=== PATIENT | female | born 1975 | race African-American/Black ===

== ENCOUNTER 2019-01-01 17:52 | Inpatient (IN) ==
[2019-01-01 18:30] LABS: Basophils # 0.1 K/mcL (0.0-0.2); Basophils % 0.6 %; Eosinophils # 1.3 K/mcL (0.0-0.6); Eosinophils % 10.6 %; Hematocrit 45.2 % (35.3-44.9); Hemoglobin 15.2 g/dL (11.5-15.4); Immature Granulocytes % 0.3 % (0-4); Lymphocytes # 1.6 K/mcL (0.6-4.6); Lymphocytes % 13.6 %; Mean Corpuscular HGB Conc 33.6 g/dL (31.6-35.5); Mean Corpuscular Hemoglobin 30.1 pg (28.0-33.3); Mean Corpuscular Volume 89.5 fL (83.0-100.0); Mean Platelet Volume 11.6 fL (9.4-12.4); Monocytes # 1.2 K/mcL (0.0-1.3); Monocytes % 9.9 %; Neutrophils # 7.8 K/mcL (1.6-8.9); Platelet Count 269 K/mcL (140-400); Red Blood Count 5.05 M/mcL (3.82-4.97); Red Cell Distribution Width 14.1 % (11.5-14.5)
[2019-01-01 18:46] LABS: BUN/Creatinine Ratio 7 (6-26); Blood Urea Nitrogen 6 mg/dL (6-20); Calcium 9.1 mg/dL (8.6-10.3); Carbon Dioxide 23 mEq/L (23-29); Chloride 105 mEq/L (98-107); Glucose 110 mg/dL (70-105); Osmolality,Calculated 276 (280-300); Potassium 4.2 mEq/L (3.5-5.1); Sodium 134 mEq/L (136-145); eGFR For Non-African Americans > 60 (> 60)
[2019-01-01] MEDS ORDERED: Ipratropium/Albuterol Neb 3 ML IH ONE (18:55)
[2019-01-01] MEDS ORDERED: methylPREDNISolone 125 MG/2 ML VIAL IVP ONE (18:55)
[2019-01-01] MEDS ORDERED: Azithromycin 500 MG in D5% in Water 250 ML IVPB ONE (18:56)
[2019-01-01] MEDS ORDERED: cefTRIAXone 1,000 MG in Water for inj. (sterile) 20 ML 10 ML IVP ONE (18:56)
--- NOTE | 2019-01-01 19:00 | Emergency Department Note ---
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 CARRILLO ELMORE I have personally performed a face to face evaluation on this patient. I have reviewed and agree with history and physical examination patient management and disposition. Briefly the salient points of the case are as follows: 43-year-old [place] female smoker trying to quit no known history of COPD or asthma months of increasing shortness of breath and about a week of cough sputum fever and chills and fatigue. Well left upper and expiratory wheeze she appears ill but nontoxic. Patient will get DuoNeb's IV fluid chest x-ray screening labs. Antibiotics and admission for sepsis/SIRS criteria./Hypoxia requiring oxygen Pain Scale: 0 - Related Data Previous Rx's Medication Instructions Recorded Albuterol Sulfate [Albuterol 2 puff IH Q4HR #1 hfa.aer.ad 12/04/18 Inhaler] Benzonatate [Tessalon] 100 mg PO TID #15 capsule 12/04/18 Cephalexin [Keflex] 500 mg PO TID #30 capsule 12/04/18 PredniSONE [Deltasone] 20 mg PO DAILY #12 tablet 12/04/18 Allergies Allergy/AdvReac Type Severity Reaction Status Date / Time No Known Allergies Allergy Verified 11/04/18 17:12 Past Medical History - Past Medical History Medical history: Reports: no medical history Psychiatric history: Reports: anxiety, depression - Social History Smoking Status: Current every day smoker Smokeless Tobacco Status: No Alcohol use: Reports: none Drug use: Reports: none Physical Exam - General Limitations: no limitations General appearance: alert, in no apparent distress Course Vital Signs Temperature 101.3 F H 01/01/19 17:59 Pulse Rate 113 01/01/19 17:59 Respiratory Rate 26 01/01/19 17:59 Blood Pressure 123/88 01/01/19 17:59 O2 Sat by Pulse Oximetry 88 01/01/19 17:59 Temperature 101.3 F H 01/01/19 17:59 Pulse Rate 113 01/01/19 17:59 Respiratory Rate 26 01/01/19 17:59 Blood Pressure 123/88 01/01/19 17:59 O2 Sat by Pulse Oximetry 88 01/01/19 17:59 Oxygen Delivery Oxygen Delivery Room Air Medical Decision Making - Lab Data Result diagrams: 01/01/19 18:14 01/01/19 18:14 Lab Results 01/01/19 01/01/19 01/01/19 Range/Units 18:14 18:14 18:14 WBC 12.1 H (4.3-11.1) K/mcL RBC 5.05 H (3.82-4.97) M/mcL Hgb 15.2 (11.5-15.4) g/dL Hct 45.2 H (35.3-44.9) % MCV 89.5 (83.0-100.0) fL MCH 30.1 (28.0-33.3) pg MCHC 33.6 (31.6-35.5) g/dL RDW 14.1 (11.5-14.5) % Plt Count 269 (140-400) K/mcL MPV 11.6 (9.4-12.4) fL Immature Gran % 0.3 (0-4) % Seg Neutrophils % 65.0 % Lymphocytes % 13.6 % Monocytes % 9.9 % Eosinophils % 10.6 % Basophils % 0.6 % Neutrophils # 7.8 (1.6-8.9) K/mcL Lymphocytes # 1.6 (0.6-4.6) K/mcL Monocytes # 1.2 (0.0-1.3) K/mcL Eosinophils # 1.3 H (0.0-0.6) K/mcL Basophils # 0.1 (0.0-0.2) K/mcL Sodium 134 L (136-145) mEq/L Potassium 4.2 (3.5-5.1) mEq/L Chloride 105 (98-107) mEq/L Carbon Dioxide 23 (23-29) mEq/L BUN 6 (6-20) mg/dL Creatinine 0.81 (0.60-1.20) mg/dL Est GFR ( Amer) > 60 (> 60) Est GFR (Non-Af Amer) > 60 (> 60) BUN/Creatinine Ratio 7 (6-26) Glucose 110 H (70-105) mg/dL Calculated Osmolality 276 L (280-300) Lactic Acid 1.0 (0.5-2.2) mmol/L Calcium 9.1 (8.6-10.3) mg/dL
[2019-01-01 19:24] LABS: Alanine Aminotransferase 11 Units/L (7-52); Albumin 3.9 g/dL (3.5-5.7); Albumin/Globulin Ratio 1.1 (1.1-2.2); Alkaline Phosphatase 57 Units/L (34-104); Aspartate Amino Transferase 19 Units/L (13-39); Bilirubin,Direct 0.1 mg/dL (0.0-0.2); Bilirubin,Indirect 0.2 mg/dL (0.0-1.2); Bilirubin,Total 0.3 mg/dL (0.3-1.0); Globulin 3.4 g/dL (2.4-3.5); Lipase 3 Units/L (11-82); Magnesium 1.8 mg/dL (1.6-2.6); Phosphorous 2.5 mg/dL (2.7-4.5); Total Protein 7.3 g/dL (6.4-8.9); Troponin I < 0.03 ng/mL (< 0.04)
--- NOTE | 2019-01-01 19:24 | Emergency Department Note ---
Disposition Clinical Impression: Hypoxia Pneumonia Qualifiers: Pneumonia type: due to unspecified organism Laterality: left Lung location: upper lobe of lung Qualified Code(s): J18.1 - Lobar pneumonia, unspecified alphonse connelly Disposition: Admitted As Inpatient Condition: Good Referrals: NONE,PCP [Primary Care Provider] - Forms: ED Satisfaction Letter Time of Disposition: 20:04 General Adult HPI - General Chief complaint: ED Shortness of Breath/Dyspnea Stated complaint: ROQUE, Cough,Vomiting Time Seen by Provider: 01/01/19 18:39 Source: patient Limitations: no limitations Nursing Notes Reviewed: Yes Vital Signs Reviewed: Yes - History of Present Illness HPI Narrative: Male patient presents emergency complaining of shortness of breath. She states that she is having feeling well for several months however this has significantly worse 3 days ago. She reports a cough and one episode of vomiting yesterday after coughing. She also reports rib pain while she is coughing. She denies any overt chest pain. She does report chilling. She reports that she has a productive cough with yellow sputum. She is a smoker but trying to cut back. No diagnosed history of COPD or asthma. She denies any abdominal pain other than when she is coughing as well. She denies swelling to her extremities. Pain Scale: 0 - Related Data Previous Rx's Medication Instructions Recorded Albuterol Sulfate [Albuterol 2 puff IH Q4HR #1 hfa.aer.ad 12/04/18 Inhaler] Benzonatate [Tessalon] 100 mg PO TID #15 capsule 12/04/18 Cephalexin [Keflex] 500 mg PO TID #30 capsule 12/04/18 PredniSONE [Deltasone] 20 mg PO DAILY #12 tablet 12/04/18 Allergies Allergy/AdvReac Type Severity Reaction Status Date / Time No Known Allergies Allergy Verified 11/04/18 17:12 All systems ED: reviewed and negative except as stated. Review of Systems: As Per HPI Constitutional: Reports: fever (Subjective), chills ENT ED: Reports: congestion Cardiovascular: Reports: chest pain (When coughing). Denies: palpitations, syncope Respiratory: Reports: cough, dyspnea, wheezes, sputum production Gastrointestinal: Reports: abdominal pain (When coughing), vomiting (After a coughing episode.). Denies: nausea, diarrhea, hematemesis, melena, hematochezia Genitourinary: Denies: urgency, dysuria, frequency, hematuria Musculoskeletal: Denies: back pain, neck pain Integumentary: Denies: rash Past Medical History - Past Medical History Attestation: Yes The following information was validated with the patient. Source: patient Medical history: Reports: no medical history Psychiatric history: Reports: anxiety, depression - Social History Smoking Status: Current every day smoker Smokeless Tobacco Status: No Alcohol use: Reports: none Drug use: Reports: none Physical Exam - General Limitations: no limitations General appearance: alert, in no apparent distress - Head Head exam: atraumatic, normocephalic, normal inspection - Eye Eye exam: Present: normal appearance, PERRL, EOMI - ENT ENT exam: normal exam, normal oropharynx, mucous membranes moist - Neck Neck exam: Present: normal inspection, full ROM, trachea midline - Chest Chest inspection: Present: normal inspection, symmetric chest wall rise - Respiratory Respiratory exam: Present: respiratory distress, wheezes (Expiratory throughout), accessory muscle use (Mild intercostal retractions.), other (Rhonchi worse on the left.) - Cardiovascular Cardiovascular exam: Present: regular rate, normal rhythm, normal heart sounds - Abdominal Exam Abdominal exam: Present: soft, Non-Tender. Absent: tenderness, distention, guarding, rebound, rigidity, organomegaly, Bell's sign, Rovsing's sign - Extremities Exam Extremities exam: Present: normal inspection, full ROM, normal capillary refill. Absent: tenderness, pedal edema - Neurological Exam Neurological exam: Present: alert, oriented X3 - Psychiatric Psychiatric exam: Present: normal affect, normal mood - Skin Skin exam: Present: warm, dry, intact, normal color. Absent: rash, cyanosis, diaphoresis Course Course Narrative: Female patient tachycardic and requiring 2 L of oxygen to maintain oxygen saturation in the mid 90s. She does not generally wear oxygen. No endorsed medical history. She is a smoker and is trying to cut back. Does have a left upper lobe pneumonia. We will provide her with fluid challenge at this time secondary to her tachycardia and meeting Sears criteria. We will start her on antibiotics at this time admitted to the hospital for hypoxia as well as pneumonia. Patient is agreeable with this plan. We will also provide her with Tylenol for her fever. - Consultations Consultation #1: Dr Sutton accepted Pt in stable condition Time: 20:04 Vital Signs Temperature 101.3 F H 01/01/19 17:59 Pulse Rate 113 01/01/19 17:59 Respiratory Rate 26 01/01/19 17:59 Blood Pressure 123/88 01/01/19 17:59 O2 Sat by Pulse Oximetry 88 01/01/19 17:59 Temperature 100.4 F H 01/01/19 19:31 Pulse Rate 117 01/01/19 19:31 Respiratory Rate 20 01/01/19 19:31 Blood Pressure 141/98 01/01/19 19:31 O2 Sat by Pulse Oximetry 95 01/01/19 19:36 Oxygen Delivery Oxygen Delivery Nasal Cannula Medical Decision Making - Medical Records Medical records reviewed: Yes I reviewed the patient's medical records. - Lab Data Lab results reviewed: Yes I reviewed the patient's lab results. Result diagrams: 01/01/19 18:14 01/01/19 18:14 Lab Results 01/01/19 01/01/19 01/01/19 Range/Units 18:14 18:14 18:14 WBC 12.1 H (4.3-11.1) K/mcL RBC 5.05 H (3.82-4.97) M/mcL Hgb 15.2 (11.5-15.4) g/dL Hct 45.2 H (35.3-44.9) % MCV 89.5 (83.0-100.0) fL MCH 30.1 (28.0-33.3) pg MCHC 33.6 (31.6-35.5) g/dL RDW 14.1 (11.5-14.5) % Plt Count 269 (140-400) K/mcL MPV 11.6 (9.4-12.4) fL Immature Gran % 0.3 (0-4) % Seg Neutrophils % 65.0 % Lymphocytes % 13.6 % Monocytes % 9.9 % Eosinophils % 10.6 % Basophils % 0.6 % Neutrophils # 7.8 (1.6-8.9) K/mcL Lymphocytes # 1.6 (0.6-4.6) K/mcL Monocytes # 1.2 (0.0-1.3) K/mcL Eosinophils # 1.3 H (0.0-0.6) K/mcL Basophils # 0.1 (0.0-0.2) K/mcL Sodium 134 L (136-145) mEq/L Potassium 4.2 (3.5-5.1) mEq/L Chloride 105 (98-107) mEq/L Carbon Dioxide 23 (23-29) mEq/L BUN 6 (6-20) mg/dL Creatinine 0.81 (0.60-1.20) mg/dL Est GFR ( Amer) > 60 (> 60) Est GFR (Non-Af Amer) > 60 (> 60) BUN/Creatinine Ratio 7 (6-26) Glucose 110 H (70-105) mg/dL Calculated Osmolality 276 L (280-300) Lactic Acid 1.0 (0.5-2.2) mmol/L Calcium 9.1 (8.6-10.3) mg/dL Phosphorus 2.5 L (2.7-4.5) mg/dL Magnesium 1.8 (1.6-2.6) mg/dL Total Bilirubin 0.3 (0.3-1.0) mg/dL Direct Bilirubin 0.1 (0.0-0.2) mg/dL Indirect Bilirubin 0.2 (0.0-1.2) mg/dL AST 19 (13-39) Units/L ALT 11 (7-52) Units/L Alkaline Phosphatase 57 (34-104) Units/L Troponin I < 0.03 (< 0.04) ng/mL Serum Total Protein 7.3 (6.4-8.9) g/dL Albumin 3.9 (3.5-5.7) g/dL Globulin 3.4 (2.4-3.5) g/dL Albumin/Globulin Ratio 1.1 (1.1-2.2) Lipase 3 L (11-82) Units/L - Radiology Data Radiology results reviewed: Yes I reviewed the patient's radiology results. Chest X-Ray 01/01/19 18:04 IMPRESSION: Left upper lobe pneumonia D/ / Avni Tirado MD / Avni Tirado MD Interpreting Provider: Avni Tirado MD - EKG Data EKG #1 EKG attestation: Yes I reviewed and interpreted this EKG. EKG results narrative: Sinus tachycardia at a rate of 121. MS interval is 154. QRS duration is 76. QT is 338. QTC is 410. No signs of acute ischemia. Concern for MAT secondary to the variable P waves as well as variable morphology of her QRS. There is no signs of acute ischemia. No previous EKG to compare to.
[2019-01-01] MEDS: 0.9 % Sodium Chloride 1,000 ML IVC SCH ×3 (19:27→23:07)
[2019-01-01 20:08] LABS: Bilirubin,Urine Negative (Negative); Blood,Urine Moderate (Negative); Clarity,Urine Cloudy (Clear); Color,Urine Yellow (Yellow); Glucose,Urine (UA) Normal (Normal); Ketones,Urine Negative (Negative); Leukocyte Esterase,Urine Negative (Negative); Nitrite,Urine Negative (Negative); PH,Urine 5.5 pH Units (5.0-8.0); Protein,Urine Negative (Neg-Trace); Specific Gravity,Urine 1.012 (1.010-1.025); Urobilinogen,Urine Normal (Normal)
[2019-01-01 20:10] LABS: Bacteria,Urine None Seen per hpf (None-Few); Hyaline Casts,Urine None Seen per lpf (None-Few); Squamous Epithelial Cell,Urine Many per lpf (None-Few); WBC,Urine 0-3 per hpf (0-3)
[2019-01-01 20:28] LABS: RBC,Urine 0-3 per hpf (0-3)
[2019-01-01 20:29] LABS: Yeast,Urine Few per hpf (None Seen)
[2019-01-01] MEDS ORDERED: Ipratropium/Albuterol Neb 3 ML IH STA (22:06)
[2019-01-01] MEDS ORDERED: Albuterol 2.5 MG/3 ML NEBULIZER IH PRN (22:08)
[2019-01-01] MEDS ORDERED: traMADol 50 MG TABLET PO PRN (22:08)
[2019-01-01] MEDS ORDERED: Naloxone 0.4 MG/ML INJ IVP PRN (22:08)
[2019-01-01] MEDS: *HR* Heparin 5,000 UNIT/ML VIAL SQ SCH (23:12)
[2019-01-01 23:43] LABS: Influenza A PCR Negative (Negative); Influenza B PCR Negative (Negative); Resp. Syncytial Virus PCR Negative (Negative)
--- NOTE | 2019-01-02 00:10 | Internal Med History&Physical ---
Date of Encounter: 01/01/19 Time of Encounter: 21:45 Internal Medicine - H&P: HPI Chief complaint: cough, fever, dyspnea Admitted From: Emergency Dept Plans for Post Hospital Care: Home History of present illness: Ms. Mc is a 43 year old female who presents to ER with complaints of cough, wheezing, shortness breath, and fever. She has been dealing with bronchitis and wheezing since September,. However, symptoms worsened significantly over the last 2 to 3 days to the point where she is extremely short of breath. She has been using nebulized breathing treatments with little relief. She therefore came to the ER where she was diagnosed with pneumonia. She had blood cultures drawn and was on antibiotics. She was then admitted to hospitalist service. Upon my assessment of the patient, she has some labored breathing, coughing, wheezing, and is tachycardic. She was febrile in the ER and reports history of subjective fevers at home for last 24 hours. She denies any headache, body aches, myalgias, vomiting, or diarrhea. She denies any chest pain other than mild pain with coughing. She denies any hemoptysis. She denies any ill contacts with influenza. She is a smoker and is trying to cut back on her smoking habits. She has never been diagnosed with COPD or asthma. However, she has been using inhalers and nebulizers off and on for the last few years. She does work in a [place] [facility] and has been exposed to ill clients lately. There have been no reports of influenza at the [place] [facility], however. Past Med Surg Social Fam HX - Past Medical History Attestation: Yes The following information was validated with the patient. Source: patient, other (ER records) Medical history: no medical history Psychiatric history: anxiety, depression - Past Surgical History Surgical History: no surgical history - Social History Smoking Status: Current every day smoker Smokeless Tobacco Status: No Alcohol use: none Drug use: none Occupational status: employed Current living situation: Home, With Family Activity Level: Independent ambulation Recent Out of Country Travel Within the Last 8 Weeks: No - Family History Mother Adopted: [place]: Manju Cousins Family Member Ethnicity: Non- Living Status: Age at : 63 Cause of : Leukemia Hx Family Cardiac Disorders: No Hx Family Respiratory Disorders: No Hx Family Cancer: Yes (Leukemia) Hx Family GI Disorders: No Hx Family Genitourinary Disorders: No Hx Family Endocrine Disorder: Yes Hx Family Musculoskeletal Disorders: No Hx Family Neuromuscular Disorders: No Hx Family Neurologic Disorders: No Hx Family HEENT Disorders: No Hx Family Autoimmune Disorders: No Hx Family Reproductive Disorders: No Hx Family Psychosocial Disorders: No Father Living Status: Still Living Hx Family Respiratory Disorders: No Internal Medicine - H&P: Meds Albuterol Sulfate [Albuterol Inhaler] 2 puff IH Q4HR #1 hfa.aer.ad 12/04/18 [Rx] Benzonatate [Tessalon] 100 mg PO TID #15 capsule 12/04/18 [Rx] Cephalexin [Keflex] 500 mg PO TID #30 capsule 12/04/18 [Rx] PredniSONE [Deltasone] 20 mg PO DAILY #12 tablet 12/04/18 [Rx] Allergy/AdvReac Type Severity Reaction Status Date / Time No Known Allergies Allergy Verified 11/04/18 17:12 - Constitutional Constitutional: chills, fever(s), no night sweats - EENT Eyes: no blurry vision, no change in vision Ears: no ear pain, no tinnitus Nose, mouth and throat: nasal congestion, no sinus pain, no sinus pressure, no sore throat - Cardiovascular Cardiovascular ROS IM: dyspnea, no chest pain, no lightheadedness, no orthopnea, no paroxysmal nocturnal dyspnea, no syncope - Respiratory Respiratory: cough, dyspnea, wheezing, chest congestion, excessive phlegm production, change in phlegm color, pain with cough, no hemoptysis, no pain on inspiration - Gastrointestinal Gastrointestinal: no abdominal pain, no diarrhea, no hematemesis, no hematochezia, no melena, no vomiting - Genitourinary Genitourinary: no dysuria, no flank pain, no hematuria - Musculoskeletal Musculoskeletal ROS IM: no arthralgias, no back pain, no myalgias - Integumentary Integumentary IM: no rash, no jaundice - Neurological Neurological ROS: no disequilibrium, no dizziness, no focal weakness, no frequent falls, no headache(s) - Psychiatric Psychiatric: no anxiety, no depression - Endocrine Endocrine IM: no cold intolerance, no heat intolerance, no polydipsia, no polyphagia, no polyuria - Allergic/Immunologic Allergic/Immunologic: wheezing, no GI upset with certain foods - Constitutional Vitals: Temp Pulse Resp BP Pulse Ox 100 F H 116 16 123/68 93 01/01/19 21:00 01/01/19 21:00 01/01/19 22:43 01/01/19 21:00 01/01/19 22:43 General appearance: Present: cooperative, A&O X 3, pleasant, answers questions appropriately Exam: mild to moderate respiratory distress - Head Head exam: Present: atraumatic, normal inspection - Eye Eye exam: Present: EOMI, PERRL. Absent: scleral icterus Pupils: Present: normal accommodation - ENT ENT exam: Present: mucous membranes dry, normal exam, normal oropharynx - Neck Neck exam general surgery: Present: full ROM, supple. Absent: tenderness, nuchal rigidity, thyromegaly - Respiratory Respiratory exam: Present: accessory muscle use, prolonged expiratory phase, rales (Left lung), respiratory distress (moderate), wheezes, tachypnea. Absent: chest wall tenderness, stridor - Cardiovascular Cardiovascular exam: Present: RRR, +S1, +S2, tachycardia. Absent: diastolic murmur, systolic murmur - GI/Abdominal GI/Abdominal exam: Present: normal bowel sounds, soft. Absent: guarding, hepatomegaly, mass, rebound, splenomegaly, tenderness - Extremities Exam Extremities exam: Present: full ROM, normal capillary refill, warm, radial pulses palpable and symmetrical. Absent: calf tenderness, pedal edema, tenderness - Back Exam Back exam: Present: normal inspection. Absent: CVA tenderness (L), CVA tenderness (R) - Neurological Exam Neurological exam: Present: alert, CN II-XII intact, oriented X3, no focal deficits, strengths equal and symetr throughout - Psychiatric Psychiatric exam: Present: normal affect, normal mood - Skin Skin exam: Present: dry, intact, warm. Absent: rash Internal Med - H&P Results - Labs CBC & Chem 7: 01/01/19 18:14 01/01/19 18:14 Labs: Short CBC 01/01/19 Range/Units 18:14 WBC 12.1 H (4.3-11.1) K/mcL Hgb 15.2 (11.5-15.4) g/dL Hct 45.2 H (35.3-44.9) % Plt Count 269 (140-400) K/mcL Neutrophils # 7.8 (1.6-8.9) K/mcL BMP 01/01/19 18:14 Sodium 134 L Potassium 4.2 Chloride 105 Carbon Dioxide 23 BUN 6 Creatinine 0.81 Glucose 110 H Calcium 9.1 Cardiac Enzymes 01/01/19 Range/Units 18:14 Troponin I < 0.03 (< 0.04) ng/mL Liver Function 01/01/19 Range/Units 18:14 Total Bilirubin 0.3 (0.3-1.0) mg/dL Direct Bilirubin 0.1 (0.0-0.2) mg/dL AST 19 (13-39) Units/L ALT 11 (7-52) Units/L Alkaline Phosphatase 57 (34-104) Units/L Albumin 3.9 (3.5-5.7) g/dL Urine 01/01/19 Range/Units 19:55 Urine Color Yellow (Yellow) Urine Clarity Cloudy A (Clear) Urine pH 5.5 (5.0-8.0) pH Units Ur Specific [place] 1.012 (1.010-1.025) Urine Protein Negative (Neg-Trace) mg/dL Urine Glucose (UA) Normal (Normal) mg/dL - EKG Data -: EKG Interpreted by Myself - EKG Data Prior EKG available for review: no EKG comments: 01/02/19 00:25 sinus tachycardia - Impressions ITS Impressions Chest X-Ray 01/01/19 18:04 IMPRESSION: Left upper lobe pneumonia D/ / Avni Tirado MD / Avni Tirado MD Interpreting Provider: Avni Tirado MD - Diagnostic Studies Chest x-ray Status: image reviewed by me (NINFA infiltrate) - Assessment and plan (1) Acute hypoxemic respiratory failure Current Visit: Yes Status: Acute Assessment and plan: 1. Patient improved with oxygen supplementation. 2. She remains in moderate respiratory distress due to wheezing and pneumonia. 3. Will treat with aggressive aerosols, steroids, and antibiotics. 4. Monitor clinically and provide further support as necessary. (2) Sepsis Current Visit: Yes Status: Acute Assessment and plan: 1. IVF, antibiotics, and respiratory support as above. 2. Trend lactate. 3. Blood cultures drawn in ER. 4. Will order sputum culture and influenza testing. 5. Pneumonia and/or Flu likely etiology for sepsis. Qualifiers: Sepsis type: sepsis due to unspecified organism Qualified Code(s): A41.9 - Sepsis, unspecified organism (3) Pneumonia Current Visit: Yes Status: Acute Assessment and plan: 1. IVF, oxygen, and antibiotics as above. 2. Culture blood, sputum, influenza testing. 3. Oxygen and supportive measures as above. Qualifiers: Pneumonia type: due to unspecified organism Laterality: left Lung location: upper lobe of lung Qualified Code(s): J18.1 - Lobar pneumonia, u nspecified organism (4) DVT prophylaxis Current Visit: Yes Status: Acute Assessment and plan: 1. Heparin SQ.
[2019-01-02] MEDS: 0.9 % Sodium Chloride 1,000 ML IVC SCH ×2 (00:28→14:04)
[2019-01-02] MEDS: Ipratropium/Albuterol Neb 3 ML IH SCH ×7 (00:43→23:55)
[2019-01-02] MEDS ORDERED: methylPREDNISolone 125 MG/2 ML VIAL IVP SCH (04:00)
[2019-01-02 05:01] LABS: Basophils % 0.1 %; Eosinophils % 0.1 %; Hematocrit 38.3 % (35.3-44.9); Immature Granulocytes % 0.2 % (0-4); Lymphocytes % 8.4 %; Mean Corpuscular HGB Conc 33.4 g/dL (31.6-35.5); Mean Corpuscular Hemoglobin 30.1 pg (28.0-33.3); Mean Corpuscular Volume 90.1 fL (83.0-100.0); Mean Platelet Volume 11.4 fL (9.4-12.4); Monocytes # 0.3 K/mcL (0.0-1.3); Monocytes % 2.8 %; Neutrophils # 10.3 K/mcL (1.6-8.9); Platelet Count 268 K/mcL (140-400); Red Blood Count 4.25 M/mcL (3.82-4.97); Red Cell Distribution Width 14.1 % (11.5-14.5); Segmented Neutrophils % 88.4 %
[2019-01-02 05:02] LABS: Hemoglobin 12.8 g/dL (11.5-15.4)
[2019-01-02 05:20] LABS: Alanine Aminotransferase 10 Units/L (7-52); Albumin 3.4 g/dL (3.5-5.7); Albumin/Globulin Ratio 1.2 (1.1-2.2); Alkaline Phosphatase 46 Units/L (34-104); Aspartate Amino Transferase 14 Units/L (13-39); BUN/Creatinine Ratio 11 (6-26); Bilirubin,Total 0.2 mg/dL (0.3-1.0); Blood Urea Nitrogen 8 mg/dL (6-20); Calcium 7.9 mg/dL (8.6-10.3); Carbon Dioxide 21 mEq/L (23-29); Chloride 110 mEq/L (98-107); Globulin 2.9 g/dL (2.4-3.5); Glucose 192 mg/dL (70-105); Magnesium 1.8 mg/dL (1.6-2.6); Osmolality,Calculated 290 (280-300); Potassium 4.2 mEq/L (3.5-5.1); Sodium 138 mEq/L (136-145); Total Protein 6.3 g/dL (6.4-8.9); eGFR For Non-African Americans > 60 (> 60)
[2019-01-02] MEDS: *HR* Heparin 5,000 UNIT/ML VIAL SQ SCH ×3 (06:30→21:46)
[2019-01-02] MEDS: cefTRIAXone 2,000 MG in Water for inj. (sterile) 20 ML 20 ML IVP SCH (08:10)
[2019-01-02] MEDS: Azithromycin 500 MG in D5% in Water 250 ML IVPB SCH (08:10)
--- NOTE | 2019-01-02 10:36 | Internal Med Progress Note ---
<Chintan Louise - Last Filed: 01/02/19 10:33> Date of Encounter: 01/02/19 Time of Encounter: 09:10 - Assessment and plan (1) Acute hypoxemic respiratory failure Current Visit: Yes Status: Acute Assessment and plan: Secondary to PNA and wheezing. Possibly undiagnosed COPD. O2 saturation of 94% on 2 L of oxygen. Patient afebrile. White blood cell count 11.6. - Continue Azithromycin and ceftriaxone Day #2. - Continue scheduled duonebs and albuerol PRN. - Decreased IV Solu-Medrol from 80 mg 3 times a day down to 60 mg 3 times a day. (2) Sepsis Current Visit: Yes Status: Resolved Assessment and plan: Likely secondary to PNA. Lactic acid increased from 1 to 1.9. Influenza test was negative. Blood cultures pending. Sputum culture is pending. Patient currently afebrile. White blood cell count 11.6. Vital signs are stable. - Continue IVF, antibiotics, and respiratory support as above. - Continue to trend lactic acid. Qualifiers: Sepsis type: sepsis due to unspecified organism Qualified Code(s): A41.9 - Sepsis, unspecified organism (3) Pneumonia Current Visit: Yes Status: Acute Assessment and plan: Continue IVF, oxygen and antibiotics. Sputum and blood cultures pending. Continue oxygen support. Chest X-Ray 01/01/19 18:04 IMPRESSION: Left upper lobe pneumonia D/ / Avni Tirado MD / Avni Tirado MD Interpreting Provider: Avni Tirado MD Qualifiers: Pneumonia type: due to unspecified organism Laterality: left Lung location: upper lobe of lung Qualified Code(s): J18.1 - Lobar pneumonia, unspecified organism (4) Hyperglycemia Current Visit: Yes Status: Acute Assessment and plan: Glucose level at 192. Likely elevated due to use of steroids however given her large body habitus, we will screen for diabetes. - Ordered hemoglobin A1c. (5) Morbid obesity with BMI of 40.0-44.9, adult Current Visit: Yes Status: Acute Assessment and plan: Follow-up with lipid panel. If patient has an ASCVD of 7.5%, she will need to be placed on a statin. In addition if her ASCVD as above 10% it would benefit her to also be placed on an aspirin daily. (6) Tobacco abuse Current Visit: Yes Status: Acute Assessment and plan: Patient has an extensive history of smoking. She smokes one pack per day since her teenage years. - Counseled on smoking cessation. (7) DVT prophylaxis Current Visit: Yes Status: Acute Assessment and plan: Heparin 5000 units subcutaneously twice a day. - Subjective Interval history: When seen today patient says that her cough has improved although she still continues to have a productive cough with yellow sputum. She does admit to some minor chest tenderness with deep breaths. Denies any nausea or vomiting. Denies any abdominal pain. Denies any dysuria or hematuria. Denies any fever. She says her shortness of breath has improved somewhat from yesterday. She still does admit to some wheezing. - Constitutional Vitals: Temp Pulse Resp BP Pulse Ox 98.6 F 94 18 120/80 94 01/02/19 07:58 01/02/19 07:58 01/02/19 07:58 01/02/19 07:58 01/02/19 07:58 General appearance: Present: cooperative, A&O X 3, morbidly obese, pleasant, answers questions appropriately - Respiratory Respiratory exam: Present: chest wall tenderness, wheezes (Minor end expiratory). Absent: rales, respiratory distress, rhonchi, stridor, tachypnea - Cardiovascular Cardiovascular exam: Present: RRR, +S1, +S2. Absent: diastolic murmur, gallop, rubs, systolic murmur - GI/Abdominal GI/Abdominal exam: Present: normal bowel sounds, soft, no peritoneal signs. Absent: distended, tenderness - Extremities Exam Extremities exam: Present: warm, radial pulses palpable and symmetrical. Absent: calf tenderness, cyanotic, pedal edema - Skin Skin exam: Present: dry, intact Internal Medicine: Result - Labs CBC & Chem 7: 01/02/19 04:43 01/02/19 04:43 Labs: Short CBC 01/01/19 01/02/19 Range/Units 18:14 04:43 WBC 12.1 H 11.6 H (4.3-11.1) K/mcL Hgb 15.2 12.8 D (11.5-15.4) g/dL Hct 45.2 H 38.3 (35.3-44.9) % Plt Count 269 268 (140-400) K/mcL Neutrophils # 7.8 10.3 H (1.6-8.9) K/mcL BMP 01/01/19 01/02/19 18:14 04:43 Sodium 134 L 138 Potassium 4.2 4.2 Chloride 105 110 H Carbon Dioxide 23 21 L BUN 6 8 Creatinine 0.81 0.72 Glucose 110 H 192 H Calcium 9.1 7.9 L Cardiac Enzymes 01/01/19 Range/Units 18:14 Troponin I < 0.03 (< 0.04) ng/mL Liver Function 01/01/19 01/02/19 Range/Units 18:14 04:43 Total Bilirubin 0.3 0.2 L (0.3-1.0) mg/dL Direct Bilirubin 0.1 (0.0-0.2) mg/dL AST 19 14 (13-39) Units/L ALT 11 10 (7-52) Units/L Alkaline Phosphatase 57 46 (34-104) Units/L Albumin 3.9 3.4 L (3.5-5.7) g/dL Urine 01/01/19 Range/Units 19:55 Urine Color Yellow (Yellow) Urine Clarity Cloudy A (Clear) Urine pH 5.5 (5.0-8.0) pH Units Ur Specific [place] 1.012 (1.010-1.025) Urine Protein Negative (Neg-Trace) mg/dL Urine Glucose (UA) Normal (Normal) mg/dL - Impressions Impressions Chest X-Ray 01/01/19 18:04 IMPRESSION: Left upper lobe pneumonia D/ / Avni Tirado MD / Avni Tirado MD Interpreting Provider: Avni Tirado MD Consult Discharge Plan - Plan Referrals: NONE,PCP [Primary Care Provider] - <Rafael Estevez - Last Filed: 01/02/19 11:43> Date of Encounter: 01/02/19 - Constitutional Vitals: Temp Pulse Resp BP Pulse Ox 98.5 F 83 16 103/64 91 01/02/19 10:44 01/02/19 10:44 01/02/19 11:07 01/02/19 10:44 01/02/19 11:07 Internal Medicine: Result - Labs CBC & Chem 7: 01/02/19 04:43 01/02/19 04:43 Labs: Short CBC 01/01/19 01/02/19 Range/Units 18:14 04:43 WBC 12.1 H 11.6 H (4.3-11.1) K/mcL Hgb 15.2 12.8 D (11.5-15.4) g/dL Hct 45.2 H 38.3 (35.3-44.9) % Plt Count 269 268 (140-400) K/mcL Neutrophils # 7.8 10.3 H (1.6-8.9) K/mcL BMP 01/01/19 01/02/19 18:14 04:43 Sodium 134 L 138 Potassium 4.2 4.2 Chloride 105 110 H Carbon Dioxide 23 21 L BUN 6 8 Creatinine 0.81 0.72 Glucose 110 H 192 H Calcium 9.1 7.9 L Cardiac Enzymes 01/01/19 Range/Units 18:14 Troponin I < 0.03 (< 0.04) ng/mL Liver Function 01/01/19 01/02/19 Range/Units 18:14 04:43 Total Bilirubin 0.3 0.2 L (0.3-1.0) mg/dL Direct Bilirubin 0.1 (0.0-0.2) mg/dL AST 19 14 (13-39) Units/L ALT 11 10 (7-52) Units/L Alkaline Phosphatase 57 46 (34-104) Units/L Albumin 3.9 3.4 L (3.5-5.7) g/dL Urine 01/01/19 Range/Units 19:55 Urine Color Yellow (Yellow) Urine Clarity Cloudy A (Clear) Urine pH 5.5 (5.0-8.0) pH Units Ur Specific [place] 1.012 (1.010-1.025) Urine Protein Negative (Neg-Trace) mg/dL Urine Glucose (UA) Normal (Normal) mg/dL - Impressions Impressions Chest X-Ray 01/01/19 18:04 IMPRESSION: Left upper lobe pneumonia D/ / Avni Tirado MD / Avni Tirado MD Interpreting Provider: Avni Tirado MD - Attending Attestation I examined this patient and my medical decision-making was reviewed with the Resident Physician Dr. Maldonado. I agree with the documented findings, disposition and treatment plan as described except to the extent set forth below. Ms. Mc is a 43 year old female who presents to ER with complaints of cough, wheezing, shortness breath, and fever. She has been dealing with bronchitis and wheezing since September,. However, symptoms worsened significantly over the last 2 to 3 days to the point where she is extremely short of breath. She has been using nebulized breathing treatments with little relief. Her chest x- ray showed left upper lobe pneumonia. Patient was admitted in the hospital and started her on IV steroids and empirical antibiotic. Pt states she is feeling little better today. Still having moderate shortness of breath and dyspnea on exertion. Gen: A, A, O x 3 Chest: Diminished BS b/l, moderate wheezing, no crackles, no rales Heart: S1S2+ RRR, No murmurs a/p 1. Acute hypoxic respiratory failure 2. Community acquired pneumonia - mostly bacterial 3. Acute reactive airway disease exacerbation 4. Chronic tobacco dependence continue empirical antibiotic continue bronchodilators as schedule try to wean her off the oxygen as she tolerates start tapering steroids possible discharge to home tomorrow may need home oxygen eval before she leaves
[2019-01-02 11:12] LABS: Chol/HDL Ratio 5.1 (0-4.9); Cholesterol 163 mg/dL (< 200); HDL Cholesterol 32 mg/dL (40-59); LDL Cholesterol,Calculated 115 mg/dL (0-99); Triglycerides 81 mg/dL (< 150)
[2019-01-02 12:58] LABS: Estimated Average Glucose 123 mg/dl; Hemoglobin A1C 5.9 %
[2019-01-02] MEDS: methylPREDNISolone 125 MG/2 ML VIAL IVP SCH ×2 (13:54→17:13)
[2019-01-02] MEDS: Acetaminophen 325 MG TABLET PO PRN (20:17)
[2019-01-03] MEDS: methylPREDNISolone 125 MG/2 ML VIAL IVP SCH ×3 (01:17→16:48)
[2019-01-03] MEDS: Ipratropium/Albuterol Neb 3 ML IH SCH ×6 (04:47→23:58)
[2019-01-03] MEDS: *HR* Heparin 5,000 UNIT/ML VIAL SQ SCH ×3 (05:40→21:23)
[2019-01-03] MEDS: cefTRIAXone 2,000 MG in Water for inj. (sterile) 20 ML 20 ML IVP SCH (08:59)
[2019-01-03] MEDS: Azithromycin 500 MG in D5% in Water 250 ML IVPB SCH (09:00)
--- NOTE | 2019-01-03 10:41 | Internal Med Progress Note ---
Hospitalist Progress Note - Encounter Date of Encounter: 01/03/19 Time of Encounter: 10:39 - Subjective Interval History: Pt reported improved sob and cough. - Exam Vitals: Temp Pulse Resp BP Pulse Ox 98.0 F 88 17 139/84 91 01/03/19 06:58 01/03/19 06:58 01/03/19 06:58 01/03/19 06:58 01/03/19 06:58 Exam: PHYSICAL EXAMINATION: GENERAL APPEARANCE: The patient is alert, oriented and in no acute distress. HEENT: Head is normocephalic. The sinuses are nontender. Pupils are equal and reactive. The nares are patent. Oropharynx clear without lesions. NECK: Supple without lymphadenopathy. HEART: Regular rate and rhythm. LUNGS: diffuse bilateral wheezes are heard. ABDOMEN: Soft, nontender, nondistended with good bowel sounds heard. Inguinal area is normal. EXTREMITIES: Without cyanosis, clubbing or edema. NEUROLOGICAL: Gross nonfocal. SKIN: Warm and dry without any rash. - Assessment and Plan (1) Pneumonia Current Visit: Yes Status: Acute Assessment and Plan: 01/02 1. IVF, oxygen, and antibiotics as above. 2. Culture blood, sputum, influenza testing. 3. Oxygen and supportive measures as above. 01/03 Continue IV abx, pending blood cx. (2) Acute hypoxemic respiratory failure Current Visit: Yes Status: Acute Assessment and Plan: 01/02 1. Patient improved with oxygen supplementation. 2. She remains in moderate respiratory distress due to wheezing and pneumonia. 3. Will treat with aggressive aerosols, steroids, and antibiotics. 4. Monitor clinically and provide further support as necessary. 01/03 Continue current treatment. (3) Sepsis Current Visit: Yes Status: Resolved (4) DVT prophylaxis Current Visit: Yes Status: Acute Assessment and Plan: 1. Heparin SQ. - Time Spent with Patient Total time spent is greater than 50% in coordination of care (as documented) at patient's floor/unit and/or counseling patient: Greater than 35 minutes Plan of Care Discussed with: patient Internal Medicine: Result - Labs CBC & Chem 7: 01/02/19 04:43 01/02/19 04:43 Labs: BMP 01/02/19 04:43 Sodium 138 Potassium 4.2 Chloride 110 H Carbon Dioxide 21 L BUN 8 Creatinine 0.72 Glucose 192 H Calcium 7.9 L Liver Function 01/02/19 Range/Units 04:43 Total Bilirubin 0.2 L (0.3-1.0) mg/dL AST 14 (13-39) Units/L ALT 10 (7-52) Units/L Alkaline Phosphatase 46 (34-104) Units/L Albumin 3.4 L (3.5-5.7) g/dL Consult Discharge Plan - Plan Referrals: Jan Gustafson MD [Non-Partnered Physician] - (Unable to schedule follow up appointment due to office being closed on the weekend. Please call Saturday to schedule appointment for 7-10 days from date of discharge. ) (1) Pneumonia Qualifiers: Pneumonia type: due to unspecified organism Laterality: left Lung location: upper lobe of lung Qualified Code(s): J18.1 - Lobar pneumonia, unspecified organism (3) Sepsis Qualifiers: Sepsis type: sepsis due to unspecified organism Qualified Code(s): A41.9 - Sepsis, unspecified organism
--- NOTE | 2019-01-03 12:37 | Electrocardiograph Report ---
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
--- NOTE | 2019-01-03 12:42 | Electrocardiograph Report ---
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
[2019-01-04] MEDS: methylPREDNISolone 125 MG/2 ML VIAL IVP SCH ×3 (02:28→15:48)
[2019-01-04] MEDS: Ipratropium/Albuterol Neb 3 ML IH SCH ×5 (03:52→20:13)
[2019-01-04 05:42] LABS: Basophils % 0.1 %; Hematocrit 37.3 % (35.3-44.9); Immature Granulocytes % 2.3 % (0-4); Lymphocytes # 2.1 K/mcL (0.6-4.6); Lymphocytes % 10.1 %; Mean Corpuscular HGB Conc 32.2 g/dL (31.6-35.5); Mean Corpuscular Hemoglobin 29.6 pg (28.0-33.3); Mean Corpuscular Volume 92.1 fL (83.0-100.0); Monocytes # 0.9 K/mcL (0.0-1.3); Monocytes % 4.3 %; Neutrophils # 17.6 K/mcL (1.6-8.9); Platelet Count 293 K/mcL (140-400); Red Blood Count 4.05 M/mcL (3.82-4.97); Red Cell Distribution Width 14.6 % (11.5-14.5); Segmented Neutrophils % 83.2 %
[2019-01-04] MEDS: *HR* Heparin 5,000 UNIT/ML VIAL SQ SCH ×3 (05:55→21:24)
[2019-01-04 05:59] LABS: BUN/Creatinine Ratio 17 (6-26); Blood Urea Nitrogen 13 mg/dL (6-20); Calcium 8.9 mg/dL (8.6-10.3); Carbon Dioxide 27 mEq/L (23-29); Chloride 107 mEq/L (98-107); Glucose 147 mg/dL (70-105); Osmolality,Calculated 289 (280-300); Potassium 4.1 mEq/L (3.5-5.1); Sodium 138 mEq/L (136-145); eGFR For Non-African Americans > 60 (> 60)
[2019-01-04] MEDS: Azithromycin 500 MG in D5% in Water 250 ML IVPB SCH (08:09)
[2019-01-04] MEDS: cefTRIAXone 2,000 MG in Water for inj. (sterile) 20 ML 20 ML IVP SCH (08:09)
[2019-01-04] MEDS: Acetaminophen 325 MG TABLET PO PRN ×2 (09:44→15:45)
--- NOTE | 2019-01-04 11:20 | Pulmonology Consult Note ---
Date of Encounter: 01/04/19 Time of Encounter: 11:20 Assessment and Plan (1) Pneumonia Current Visit: Yes Status: Acute A conclusion this is a 43-year-old woman with past medical history of tobacco abuse and history of recurrent bronchitis who presents with increased shortness of breath 1 week this is likely secondary to community acquired pneumonia with left upper lobe opacity consistent with this diagnosis she has what appears to be an exacerbation of obstructive airway disease and my opinion this is likely a combination of both underlying asthma and COPD or what has been described as asthma COPD overlap syndrome. The fact that she has not had a quick turnaround is not surprising as I suspect she does have advanced airways disease and has a severe pneumonia. She has a persistent leukocytosis which may be a reflection of steroid use however this may mean that optimal treatment has not been obtained for pneumonia for which reason I am recommending further imaging and further investigations to causative organism of pneumonia. Lastly patient has high pretest probability for sleep disorder breathing Recs: -Agree with continuing treatment for community acquired pneumonia with MRSA swab was positive and per persistent leukocytosis would add vancomycin to her regimen until of final speciation of sputum culture -Please send urine antigens for strep pneumo and legionella as well as respiratory infection panel; please also send MRSA surveillance swab -Noncontrasted CT scan of the chest for further evaluation of pneumonia please keep nothing by mouth at midnight may consider bronchoscopy in the morning based upon clinical course and the radiographic findings -Agree with the schedule bronchodilators I have added Symbicort to her regimen ideally she should be discharged with this inhaler albuterol can be given as nee ded -I agree with continuation of IV systemic glucocorticoids likely can be transitioned to by mouth prednisone 40 over the next 24-48 hours -Outpatient pulmonary follow-up she will need to formal polysomnogram to evaluate for likely CARMEN - Possible adverse effects of untreated sleep apnea explained including increased risk of stroke, hypertension, headaches, and pulmonary hypertension. Advised not to drive if sleepy as untreated CARMEN can cause motor vehicle accidents. -Tobacco abuse counseling given -Chemical DVT prophylaxis unless contraindication arises -Please keep nothing by mouth at midnight Dr Smith will review CT scan to make final decision based upon clinical course the patient would Benefit from bronchoscopy or not Thank you for this consultation pulmonary will continue to follow Do not hesitate to call me with any questions or concerns Michael Ramon [phone] Qualifiers: Pneumonia type: due to unspecified organism Laterality: left Lung location: upper lobe of lung Qualified Code(s): J18.1 - Lobar pneumonia, unspecified organism (2) COPD exacerbation Current Visit: Yes Status: Acute (3) Morbid obesity with BMI of 40.0-44.9, adult Current Visit: Yes Status: Acute (4) Tobacco abuse Current Visit: Yes Status: Acute History of Present Illness Consult date: 01/04/19 Requesting physician: Inna Swann Reason for consult: COPD Chief complaint: Difficulty in Breathing History of present illness: Pleasant 43-year-old woman with past medical history of tobacco abuse who pre sents with increased shortness of breath 1 week she also have cough and subjective fevers presented to the ED and found to have diffuse wheezing chest x-ray concerning for pneumonia in the left upper lobe the nasal swab for influenza and RSV were negative patient's been treated for community acquired pneumonia and presumed COPD exacerbation given smoking history. Patient states she has had recurrent episodes of bronchitis over the last 3 months and has been treated on at least 2 separate occasions for bronchitis. 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 She does smoke about a pack a day and has since early adole scence. She does wake up feeling tired after sleep has unrefreshed sleep daytime hypersomnolence including frequent desire to nap and when as we can up with a dry mouth and headaches in the past. Never had a formal sleep evaluation however the patient is morbidly obese. Today she is complaining of a dry mouth denies any nausea vomiting however she states that the dry mouth is secondary to breathing treatments which have been mainstay of therapy along with IV steroids since she has been admitted. She says that breathing feels about the same still very labored and she is dyspneic conversational but still dyspneic. Denies any exotic pets at home no industrial exposures in the past. Past Med Surg Social Fam HX - Past Medical History Medical history: no medical history Psychiatric history: anxiety, depression - Past Surgical History Surgical History: no surgical history - Social History Smoking Status: Current every day smoker Smokeless Tobacco Status: No Alcohol use: none Drug use: none - Family History Mother Adopted: [place]: Manju Cousins Family Member Ethnicity: Non- Living Status: Age at : 63 Cause of : Leukemia Hx Family Cardiac Disorders: No Hx Family Respiratory Disorders: No Hx Family Cancer: Yes (Leukemia) Hx Family GI Disorders: No Hx Family Genitourinary Disorders: No Hx Family Endocrine Disorder: Yes Hx Family Musculoskeletal Disorders: No Hx Family Neuromuscular Disorders: No Hx Family Neurologic Disorders: No Hx Family HEENT Disorders: No Hx Family Autoimmune Disorders: No Hx Family Reproductive Disorders: No Hx Family Psychosocial Disorders: No Father Living Status: Still Living Hx Family Respiratory Disorders: No Medications and Allergies Albuterol Sulfate [Albuterol Inhaler] 2 puff IH Q4HR #1 [email or web address] 12/04/18 [Rx] Allergy/AdvReac Type Severity Reaction Status Date / Time No Known Allergies Allergy Verified 01/02/19 18:51 All Systems: The remainder of the systems were reviewed and are negative Physical Examination Vital Signs: Vital Signs, Last 4 Hours Resp Pulse Ox 01/04/19 08:23 22 95 General appearance: no acute distress Eyes: nonicteric Mallampati (class): 4 Neck: supple Effort: mildly labored Auscultation: bilateral: diminished breath sounds, wheezes (Diffuse expiratory wheezes with prolonged expiratory phase) Cardiovascular: regular rate and rhythm Gastrointestinal: normoactive bowel sounds, soft, non-tender Integumentary: normal Extremities: no cyanosis, no edema, no clubbing Musculoskeletal: no deformities normal mental status, non-focal exam mood appropriate Results - Laboratory Findings CBC and BMP: 01/04/19 04:22 01/04/19 04:22 Abnormal lab findings: Abnormal lab results WBC 21.1 K/mcL (4.3-11.1) H D 01/04/19 04:22 RDW 14.6 % (11.5-14.5) H 01/04/19 04:22 Neutrophils # 17.6 K/mcL (1.6-8.9) H 01/04/19 04:22 Glucose 147 mg/dL (70-105) H 01/04/19 04:22 Hemoglobin A1c 5.9 % (-5.6) H 01/02/19 10:59 Phosphorus 2.0 mg/dL (2.7-4.5) L 01/02/19 04:43 Total Bilirubin 0.2 mg/dL (0.3-1.0) L 01/02/19 04:43 Serum Total Protein 6.3 g/dL (6.4-8.9) L 01/02/19 04:43 Albumin 3.4 g/dL (3.5-5.7) L 01/02/19 04:43 LDL Cholesterol, Calc 115 mg/dL (0-99) H 01/02/19 04:43 HDL Cholesterol 32 mg/dL (40-59) L 01/02/19 04:43 Cholesterol/HDL Ratio 5.1 (0-4.9) H 01/02/19 04:43 Lipase 3 Units/L (11-82) L 01/01/19 18:14 Urine Clarity Cloudy (Clear) A 01/01/19 19:55 Urine Blood Moderate (Negative) H 01/01/19 19:55 Ur Squamous Epith Cells Many per lpf (None-Few) H 01/01/19 19:55 Urine Yeast Few per hpf (None Seen) H 01/01/19 19:55 - Microbiology Findings Microbiology Findings: Microbiology, Last 48 Hours 01/03/19 01:15 Sputum Culture - Preliminary Sputum - Diagnostic Findings Chest x-ray: report reviewed, image reviewed - Clinical Findings Intake & Output: Intake & Output 01/03/19 01/04/19 01/04/19 23:59 07:59 15:59 Intake Total 360 / 360 Balance 360 / 360 Weight 109.6 kg Consult Discharge Plan - Plan Referrals: Jan Gustafson MD [Non-Partnered Physician] - (Unable to schedule follow up appointment due to office being closed on the weekend. Please call Saturday to schedule appointment for 7-10 days from date of discharge. )
[2019-01-04] MEDS: Budesonide/Formoterol 160/4.5 1 PUFF INH IH SCH ×2 (11:44→20:13)
--- NOTE | 2019-01-04 12:17 | Internal Med Progress Note ---
Hospitalist Progress Note - Encounter Date of Encounter: 01/04/19 Time of Encounter: 12:14 - Subjective Interval History: Patient reported coughed up large amount of mucus overnight. She also feel wheezing all the time, unchanged from yesterday. - Exam Vitals: Temp Pulse Resp BP Pulse Ox 97.6 F 71 18 119/75 96 01/04/19 11:18 01/04/19 11:18 01/04/19 11:45 01/04/19 11:18 01/04/19 11:45 Exam: PHYSICAL EXAMINATION: GENERAL APPEARANCE: The patient is alert, oriented and in no acute distress. HEENT: Head is normocephalic. The sinuses are nontender. Pupils are equal and reactive. The nares are patent. Oropharynx clear without lesions. NECK: Supple without lymphadenopathy. HEART: Regular rate and rhythm. LUNGS: diffuse bilateral wheezes are heard. ABDOMEN: Soft, nontender, nondistended with good bowel sounds heard. Inguinal area is normal. EXTREMITIES: Without cyanosis, clubbing or edema. NEUROLOGICAL: Gross nonfocal. SKIN: Warm and dry without any rash. - Assessment and Plan (1) Pneumonia Current Visit: Yes Status: Acute Assessment and Plan: 01/02 1. IVF, oxygen, and antibiotics as above. 2. Culture blood, sputum, influenza testing. 3. Oxygen and supportive measures as above. 01/03 Continue IV abx, pending blood cx. 01/04 MRSA surveillance screen, respiratory infection panel, Legionella and the pneumococcal antigen were ordered. Continue current antibiotics, we will tailor treatment based on the lab results. CT chest ordered by pulmonology, will keep patient nothing by mouth after midnight for possible bronchoscopy in the morning. Pulm consulted, appreciate input and help. (2) Acute hypoxemic respiratory failure Current Visit: Yes Status: Acute Assessment and Plan: 01/02 1. Patient improved with oxygen supplementation. 2. She remains in moderate respiratory distress due to wheezing and pneumonia. 3. Will treat with aggressive aerosols, steroids, and antibiotics. 4. Monitor clinically and provide further support as necessary. 01/03 Continue current treatment. 01/04 Symbicort as started by pulmonology, continue other bronchodilators and IV steroids. (3) Sepsis Current Visit: Yes Status: Resolved (4) DVT prophylaxis Current Visit: Yes Status: Acute Assessment and Plan: 1. Heparin SQ. - Time Spent with Patient Total time spent is greater than 50% in coordination of care (as documented) at patient's floor/unit and/or counseling patient: Greater than 35 minutes Plan of Care Discussed with: patient Internal Medicine: Result - Labs CBC & Chem 7: 01/04/19 04:22 01/04/19 04:22 Labs: Short CBC 01/04/19 Range/Units 04:22 WBC 21.1 H D (4.3-11.1) K/mcL Hgb 12.0 (11.5-15.4) g/dL Hct 37.3 (35.3-44.9) % Plt Count 293 (140-400) K/mcL Neutrophils # 17.6 H (1.6-8.9) K/mcL BMP 01/04/19 04:22 Sodium 138 Potassium 4.1 Chloride 107 Carbon Dioxide 27 BUN 13 Creatinine 0.78 Glucose 147 H Calcium 8.9 Consult Discharge Plan - Plan Referrals: Jan Gustafson MD [Non-Partnered Physician] - (Unable to schedule follow up appointment due to office being closed on the weekend. Please call Saturday to schedule appointment for 7-10 days from date of discharge. ) (1) Pneumonia Qualifiers: Pneumonia type: due to unspecified organism Laterality: left Lung location: upper lobe of lung Qualified Code(s): J18.1 - Lobar pneumonia, unspecified organism (3) Sepsis Qualifiers: Sepsis type: sepsis due to unspecified organism Qualified Code(s): A41.9 - Sepsis, unspecified organism
[2019-01-04 13:14] LABS: Adenovirus Not Detected (Not Detect); Bordetella Pertussis Not Detected (Not Detect); Coronavirus 229E Not Detected (Not Detect); Coronavirus HKU1 Not Detected (Not Detect); Coronavirus NL63 Not Detected (Not Detect); Coronavirus OC43 DETECTED (Not Detect); Human Metapneumovirus Not Detected (Not Detect); Human Rhinovirus/Enterovirus Not Detected (Not Detect); Influenza A Subtype 2009 H1 Not Detected (Not Detect); Influenza A Untypeable Not Detected (Not Detect); Influenza B Not Detected (Not Detect); Parainfluenza Virus 1 Not Detected (Not Detect); Parainfluenza Virus 2 Not Detected (Not Detect); Parainfluenza Virus 3 Not Detected (Not Detect); Parainfluenza Virus 4 Not Detected (Not Detect); Respiratory Syncytial Virus Not Detected (Not Detect)
[2019-01-04 13:15] LABS: Chlamydophila pneumoniae Not Detected (Not Detect); Mycoplasma pneumoniae Not Detected (Not Detect)
[2019-01-04] MEDS: GuaiFENesin/Pseudophedrine TABLET PO SCH ×2 (15:12→21:24)
[2019-01-05] MEDS: Ipratropium/Albuterol Neb 3 ML IH SCH ×7 (00:01→23:47)
[2019-01-05] MEDS: methylPREDNISolone 125 MG/2 ML VIAL IVP SCH (00:48)
[2019-01-05 03:40] LABS: Hematocrit 38.6 % (35.3-44.9); Hemoglobin 12.7 g/dL (11.5-15.4); Mean Corpuscular Volume 89.8 fL (83.0-100.0)
[2019-01-05 03:41] LABS: Basophils % 0.2 %; Eosinophils % 0.1 %; Immature Granulocytes % 2.6 % (0-4); Lymphocytes # 2.3 K/mcL (0.6-4.6); Mean Corpuscular HGB Conc 32.9 g/dL (31.6-35.5); Mean Corpuscular Hemoglobin 29.5 pg (28.0-33.3); Mean Platelet Volume 11.2 fL (9.4-12.4); Monocytes # 0.9 K/mcL (0.0-1.3); Neutrophils # 14.1 K/mcL (1.6-8.9); Platelet Count 300 K/mcL (140-400); Red Cell Distribution Width 14.4 % (11.5-14.5); Segmented Neutrophils % 79.1 %
[2019-01-05 04:04] LABS: BUN/Creatinine Ratio 16 (6-26); Blood Urea Nitrogen 11 mg/dL (6-20); Calcium 8.4 mg/dL (8.6-10.3); Carbon Dioxide 28 mEq/L (23-29); Chloride 105 mEq/L (98-107); Glucose 146 mg/dL (70-105); Osmolality,Calculated 292 (280-300); Potassium 4.1 mEq/L (3.5-5.1); Sodium 140 mEq/L (136-145); eGFR For Non-African Americans > 60 (> 60)
[2019-01-05] MEDS: *HR* Heparin 5,000 UNIT/ML VIAL SQ SCH ×3 (05:19→20:38)
[2019-01-05] MEDS: Budesonide/Formoterol 160/4.5 1 PUFF INH IH SCH ×2 (07:58→19:42)
[2019-01-05] MEDS: Azithromycin 500 MG in D5% in Water 250 ML IVPB SCH (08:37)
[2019-01-05] MEDS: GuaiFENesin/Pseudophedrine TABLET PO SCH ×2 (08:37→20:38)
[2019-01-05] MEDS: cefTRIAXone 2,000 MG in Water for inj. (sterile) 20 ML 20 ML IVP SCH (08:38)
[2019-01-05] MEDS ORDERED: predniSONE 20 MG TABLET PO SCH (09:00)
[2019-01-05] MEDS ORDERED: *HR* FentaNYL (PF) 100 MCG/2 ML VIAL ONE (09:09)
[2019-01-05] MEDS ORDERED: *HR* Midazolam HCl 5 MG/5 ML VIAL IVP ONE (09:10)
[2019-01-05] MEDS ORDERED: Lidocaine Viscous Oral Soln 15 ML SOLUTION ONE (09:12)
--- NOTE | 2019-01-05 09:20 | Pulmonology Progress Note ---
<Marisabel Forrester - Last Filed: 01/05/19 13:02> Date of Encounter: 01/05/19 Time of Encounter: 10:00 Assessment and Plan (1) COPD (chronic obstructive pulmonary disease) Current Visit: Yes Status: Suspected Suspected COPD but has coronavirus positive and shortness of breath could be attributed to that. She has no previous diagnosis of COPD. CT shows diffusely multifocal bilateral ground glass opacities. She also was noted to have mediastinal and bilateral hilar adenopathy on the CT chest. -Completed bronchoscopy this morning -Pending cytology results -Continue to taper prednisone, decreased to 20 mg today -Follow outpatient with pulmonolgoy for PFTs and CARMEN polysomnogram Qualifiers: COPD type: unspecified COPD Qualified Code(s): J44.9 - Chronic obstructive pulmonary disease, unspecified (2) Tobacco abuse Current Visit: Yes Status: Acute 20 pack year history and current smoker. Received tobacco cessation counseling. (3) Morbid obesity with BMI of 40.0-44.9, adult Current Visit: Yes Status: Chronic BMI 44.2, could have obesity hypoventilation syndrome. Would benefit from outpatient obstructive sleep apnea evaluation with pulmonology. Subjective Interval history: Ms. Mc was seen at bedside this morning. She complained of ongoing shortness of breath for the past 3 months. She also complained of coughing. Her symptoms have not improve. Prior to three months ago she had no respiratory related complaints. She denies fever, chills, nausea, emesis, or chest pain. Objective PUL Vital signs: Last Vital Signs Temp 98.5 F 01/05/19 06:45 Pulse 78 01/05/19 06:45 Resp 18 01/05/19 08:00 BP 134/78 01/05/19 06:45 Pulse Ox 93 01/05/19 08:00 General appearance: no acute distress Eyes: nonicteric ENT: oropharynx moist Neck: supple Auscultation: bilateral: diminished breath sounds, wheezes Cardiovascular: regular rate and rhythm Gastrointestinal: normoactive bowel sounds, soft, non-tender, non-distended Integumentary: normal Extremities: no cyanosis, no edema normal mental status mood appropriate, affect normal Results - Laboratory Findings CBC and BMP: 01/05/19 03:14 01/05/19 03:14 Abnormal lab findings: Abnormal lab results WBC 17.8 K/mcL (4.3-11.1) H 01/05/19 03:14 Neutrophils # 14.1 K/mcL (1.6-8.9) H 01/05/19 03:14 Glucose 146 mg/dL (70-105) H 01/05/19 03:14 Hemoglobin A1c 5.9 % (-5.6) H 01/02/19 10:59 Calcium 8.4 mg/dL (8.6-10.3) L 01/05/19 03:14 Phosphorus 2.0 mg/dL (2.7-4.5) L 01/02/19 04:43 Total Bilirubin 0.2 mg/dL (0.3-1.0) L 01/02/19 04:43 Serum Total Protein 6.3 g/dL (6.4-8.9) L 01/02/19 04:43 Albumin 3.4 g/dL (3.5-5.7) L 01/02/19 04:43 LDL Cholesterol, Calc 115 mg/dL (0-99) H 01/02/19 04:43 HDL Cholesterol 32 mg/dL (40-59) L 01/02/19 04:43 Cholesterol/HDL Ratio 5.1 (0-4.9) H 01/02/19 04:43 Lipase 3 Units/L (11-82) L 01/01/19 18:14 Urine Clarity Cloudy (Clear) A 01/01/19 19:55 Urine Blood Moderate (Negative) H 01/01/19 19:55 Ur Squamous Epith Cells Many per lpf (None-Few) H 01/01/19 19:55 Urine Yeast Few per hpf (None Seen) H 01/01/19 19:55 Coronavirus OC43 (PCR) DETECTED (Not Detect) A 01/04/19 12:10 - Microbiology Findings Microbiology Findings: Microbiology, Last 48 Hours 01/03/19 01:15 Sputum Culture - Preliminary Sputum - Clinical Findings Intake & Output: Intake & Output 01/04/19 01/05/19 01/05/19 23:59 07:59 15:59 Intake Total 270 / 270 Balance 270 / 270 Consult Discharge Plan - Plan Referrals: Jan Gustafson MD [Non-Partnered Physician] - 01/13/19 9:15 am () <Shae Smith - Last Filed: 01/05/19 15:01> Date of Encounter: 01/05/19 Objective PUL Vital signs: Last Vital Signs Temp 98.5 F 01/05/19 06:45 Pulse 78 01/05/19 06:45 Resp 18 01/05/19 08:00 BP 134/78 01/05/19 06:45 Pulse Ox 93 01/05/19 08:00 Results - Laboratory Findings CBC and BMP: 01/05/19 03:14 01/05/19 03:14 Abnormal lab findings: Abnormal lab results WBC 17.8 K/mcL (4.3-11.1) H 01/05/19 03:14 Neutrophils # 14.1 K/mcL (1.6-8.9) H 01/05/19 03:14 Glucose 146 mg/dL (70-105) H 01/05/19 03:14 Hemoglobin A1c 5.9 % (-5.6) H 01/02/19 10:59 Calcium 8.4 mg/dL (8.6-10.3) L 01/05/19 03:14 Phosphorus 2.0 mg/dL (2.7-4.5) L 01/02/19 04:43 Total Bilirubin 0.2 mg/dL (0.3-1.0) L 01/02/19 04:43 Serum Total Protein 6.3 g/dL (6.4-8.9) L 01/02/19 04:43 Albumin 3.4 g/dL (3.5-5.7) L 01/02/19 04:43 LDL Cholesterol, Calc 115 mg/dL (0-99) H 01/02/19 04:43 HDL Cholesterol 32 mg/dL (40-59) L 01/02/19 04:43 Cholesterol/HDL Ratio 5.1 (0-4.9) H 01/02/19 04:43 Lipase 3 Units/L (11-82) L 01/01/19 18:14 Urine Clarity Cloudy (Clear) A 01/01/19 19:55 Urine Blood Moderate (Negative) H 01/01/19 19:55 Ur Squamous Epith Cells Many per lpf (None-Few) H 01/01/19 19:55 Urine Yeast Few per hpf (None Seen) H 01/01/19 19:55 Coronavirus OC43 (PCR) DETECTED (Not Detect) A 01/04/19 12:10 - Microbiology Findings Microbiology Findings: Microbiology, Last 48 Hours 01/03/19 01:15 Sputum Culture - Preliminary Sputum - Clinical Findings Intake & Output: Intake & Output 01/04/19 01/05/19 01/05/19 23:59 07:59 15:59 Intake Total 270 / 270 Balance 270 / 270 - Attending Attestation I examined this patient and my medical decision-making was reviewed with the Resident Physician. I agree with the documented findings, disposition and treatment plan as described except to the extent set forth below. Patient seen and examined. Labs, radiology, chart personally reviewed. 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 Reviewed CT chest and there is evidence of groundglass infiltrates mainly in both upper lobes suggesting pneumonia which could be viral in nature and also what seems to be reactive adenopathy. Since patient has risk factors, discussed with patient regarding bronchoscopy and she agreed to have it done.A bronchoscopy is recommended. The procedure , risks, benefits, complications, and expected outcomes have been reviewed. Benefits of diagnosis, as well as risks to include bleeding, infection, pneumothorax which may require surgical intervention, and in a small population. The patient is aware that sometimes test is nondiagnostic. Discussed with patient and agrees to proceed. I suspect patient has underlying obstructive sleep apnea and outpatient workup to be done when patient is discharged from the hospital.
--- NOTE | 2019-01-05 10:20 | Anesthesia Evaluation PreOp ---
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 ADVOCATE History: Denies Any Significant HX Other Medical History: Other (obsity BMI=44.2, anxiety/depression) Anesthesia History: Past Anesthesia (no prior GA) Test: Negative (01/05/2019) Alcohol Use: none Drug use: none Medications and Allergies Albuterol Sulfate [Albuterol Inhaler] 2 puff IH Q4HR #1 hfa.aer.ad 12/04/18 [Rx] Allergy/AdvReac Type Severity Reaction Status Date / Time No Known Allergies Allergy Verified 01/02/19 18:51 - Meds/Allergy Pre-op Review Medications Reviewed: Yes Allergies Reviewed: Yes Beta Blockers on Current Med List: No Anesthesia Results - Labs 01/05/19 03:14 01/05/19 03:14 Laboratory Tests 01/05/19 09:45 Serum , Qual Negative - Imaging EKG: report reviewed (01/02/2019 SINUS RHYTHM WITH MARKED SINUS ARRHYTHMIA NONSPECIFIC T-WAVE ABNORMALITY) Chest x-ray: report reviewed (01/01/2019 IMPRESSION: Left upper lobe pneumonia) Anesthesia Exam Vital Signs/O2 Sat, Most Current Temp Pulse Resp BP Pulse Ox 98.5 F 78 18 134/78 93 01/05/19 06:45 01/05/19 06:45 01/05/19 08:00 01/05/19 06:45 01/05/19 08:00 Height: 5'2''/1.57m Weight: 241 lbs/109.6 kg NPO (# of Hours): 8 Pain Scale: 0 Pain Scale Used: Numeric (1 - 10) - HEENT Pupil (Motor): EOMI Mallampati: II Teeth: Normal Oral Opening: Greater than 3 - DEVELOPER ADVOCATE LOC: Oriented DEVELOPER ADVOCATE Motor: Normal RUE, Normal LUE, Normal RLE, Normal LLE, Normal Face DEVELOPER ADVOCATE Sensory: Normal: RUE, LUE, RLE, LLE, Face - Cardiac Rhythm: Regular Murmur: None - Pulmonary Breath Sounds: bilateral Rhonchi (wheezes) Respiratory Effort: Symmetrical Anesthesia Assess/Plan ASA Score: 3 Level of consciousness: Cooperative, Oriented, Tranquil Monitoring Plan: Standard Monitors Recovery Plan: PACU
[2019-01-05] MEDS ORDERED: Lidocaine -MPF 2% 2 ML VIAL ONE (10:31)
[2019-01-05] MEDS ORDERED: Dexamethasone 4 MG/ML VIAL ONE (10:31)
[2019-01-05] MEDS ORDERED: Ondansetron 4 MG/2 ML VIAL ONE (10:31)
[2019-01-05] MEDS ORDERED: *HR* Succinylcholine 200 MG/10 ML VIAL IVP ONE (10:31)
[2019-01-05] MEDS ORDERED: Lidocaine -MPF 4% 5 ML AMPUL ONE (10:31)
[2019-01-05] MEDS ORDERED: *HR* Propofol 200 MG/20 ML VIAL IVP ONE (10:32)
[2019-01-05] MEDS ORDERED: Albuterol 2.5 MG/3 ML NEBULIZER ONE (10:58)
[2019-01-05] MEDS ORDERED: 0.9 % Sodium Chloride 500 ML IVC SCH (11:00)
--- NOTE | 2019-01-05 11:38 | Internal Med Progress Note ---
Hospitalist Progress Note - Encounter Date of Encounter: 01/05/19 Time of Encounter: 11:35 - Subjective Interval History: Patient has been off oxygen overnight, she still reported congestion and cough drop large amount of mucus. Shortness of breath has improved. She has no fever, chills, or night sweats. - Exam Vitals: Temp Pulse Resp BP Pulse Ox 98.0 F 103 18 137/86 99 01/05/19 11:30 01/05/19 11:30 01/05/19 11:30 01/05/19 11:30 01/05/19 11:30 Exam: PHYSICAL EXAMINATION: GENERAL APPEARANCE: The patient is alert, oriented and in no acute distress. HEENT: Head is normocephalic. The sinuses are nontender. Pupils are equal and reactive. The nares are patent. Oropharynx clear without lesions. NECK: Supple without lymphadenopathy. HEART: Regular rate and rhythm. LUNGS: diffuse bilateral wheezes are heard. ABDOMEN: Soft, nontender, nondistended with good bowel sounds heard. Inguinal area is normal. EXTREMITIES: Without cyanosis, clubbing or edema. NEUROLOGICAL: Gross nonfocal. SKIN: Warm and dry without any rash. - Assessment and Plan (1) Pneumonia Current Visit: Yes Status: Acute Assessment and Plan: 01/02 1. IVF, oxygen, and antibiotics as above. 2. Culture blood, sputum, influenza testing. 3. Oxygen and supportive measures as above. 01/03 Continue IV abx, pending blood cx. 01/04 MRSA surveillance screen, respiratory infection panel, Legionella and the pneumococcal antigen were ordered. Continue current antibiotics, we will tailor treatment based on the lab results. CT chest ordered by pulmonology, will keep patient nothing by mouth after midnight for possible bronchoscopy in the morning. Pulm consulted, appreciate input and help. 01/05 CT chest showed bilateral diffused GGO, patient had bronchoscopy with BAL today, pending cultures. Continue IV antibiotics for pneumonia. Continue bronchodilators. Anticipated discharge in the morning. (2) Acute hypoxemic respiratory failure Current Visit: Yes Status: Acute Assessment and Plan: 01/02 1. Patient improved with oxygen supplementation. 2. She remains in moderate respiratory distress due to wheezing and pneumonia. 3. Will treat with aggressive aerosols, steroids, and antibiotics. 4. Monitor clinically and provide further support as necessary. 01/03 Continue current treatment. 01/04 Symbicort as started by pulmonology, continue other bronchodilators and IV steroids. 01/05 Status post bronchoscopy, mucus plug were seen in BAL. Continue IV antibiotics. Continue treatment for COPD. Discussed about smoking cessation. (3) Sepsis Current Visit: Yes Status: Resolved (4) DVT prophylaxis Current Visit: Yes Status: Acute Assessment and Plan: 1. Heparin SQ. - Time Spent with Patient Total time spent is greater than 50% in coordination of care (as documented) at patient's floor/unit and/or counseling patient: Greater than 35 minutes Plan of Care Discussed with: patient Internal Medicine: Result - Labs CBC & Chem 7: 01/05/19 03:14 01/05/19 03:14 Labs: Short CBC 01/05/19 Range/Units 03:14 WBC 17.8 H (4.3-11.1) K/mcL Hgb 12.7 (11.5-15.4) g/dL Hct 38.6 (35.3-44.9) % Plt Count 300 (140-400) K/mcL Neutrophils # 14.1 H (1.6-8.9) K/mcL BMP 01/05/19 03:14 Sodium 140 Potassium 4.1 Chloride 105 Carbon Dioxide 28 BUN 11 Creatinine 0.67 Glucose 146 H Calcium 8.4 L - Impressions Impressions Chest CT 01/04/19 11:23 IMPRESSION: Diffusely distributed multifocal bilateral areas of ground-glass opacity, likely infectious or inflammatory. Edema or hemorrhage are also possible. Mediastinal and bilateral hilar adenopathy, likely reactive. D/ / Cris Cespedes Cha, MD / Cris Cespedes Cha, MD Interpreting Provider: Cris Cespedes Cha, MD Consult Discharge Plan - Plan Referrals: Jan Gustafson MD [Non-Partnered Physician] - 01/13/19 9:15 am () (1) Pneumonia Qualifiers: Pneumonia type: due to unspecified organism Laterality: left Lung location: upper lobe of lung Qualified Code(s): J18.1 - Lobar pneumonia, unspecified organism (3) Sepsis Qualifiers: Sepsis type: sepsis due to unspecified organism Qualified Code(s): A41.9 - Sepsis, unspecified organism
--- NOTE | 2019-01-05 11:58 | Anesthesia Evaluation Post Op ---
Date of Encounter: 01/05/19 Time of Encounter: 11:57 - Vital Signs Vital Signs: Vital Signs/O2 Sat/Glucose, Most Recent Temp Pulse Resp BP Pulse Ox 98.0 F 90 20 132/82 98 01/05/19 11:50 01/05/19 11:50 01/05/19 11:50 01/05/19 11:50 01/05/19 11:50 - Lungs Lungs: Wheezes (baseline) - Airway Airway: Non-obstructed - Cardiovascular Regular Rate - Mental Status Mental Status: Alert & Oriented, Answers Appropriately - Pain Pain Scale: 0 - Nausea Vomiting Nausea Vomiting: Not Present - Hydration Hydration: Tolerates oral liquids - Discharge PostOp Status: Transfer Patient to floor
[2019-01-05 14:43] LABS: Source of Body Fluid LUL BAL; Source of Body Fluid RUL BAL
[2019-01-05 22:12] LABS: Appearance of Body Fluid Cloudy (Clear); Volume of Body Fluid 15 mL
[2019-01-05 22:38] LABS: Appearance of Body Fluid Cloudy (Clear); Volume of Body Fluid 16 mL
[2019-01-06] MEDS: Ipratropium/Albuterol Neb 3 ML IH SCH ×3 (04:10→11:07)
[2019-01-06] MEDS: *HR* Heparin 5,000 UNIT/ML VIAL SQ SCH (05:07)
[2019-01-06 05:52] LABS: Basophils # 0.1 K/mcL (0.0-0.2); Basophils % 0.3 %; Eosinophils % 0.1 %; Hematocrit 38.1 % (35.3-44.9); Hemoglobin 12.6 g/dL (11.5-15.4); Immature Granulocytes % 2.6 % (0-4); Lymphocytes # 2.8 K/mcL (0.6-4.6); Lymphocytes % 18.3 %; Mean Corpuscular HGB Conc 33.1 g/dL (31.6-35.5); Mean Corpuscular Hemoglobin 29.9 pg (28.0-33.3); Mean Corpuscular Volume 90.3 fL (83.0-100.0); Mean Platelet Volume 11.7 fL (9.4-12.4); Monocytes # 1.2 K/mcL (0.0-1.3); Monocytes % 7.8 %; Neutrophils # 10.7 K/mcL (1.6-8.9); Platelet Count 289 K/mcL (140-400); Red Blood Count 4.22 M/mcL (3.82-4.97); Red Cell Distribution Width 14.1 % (11.5-14.5); Segmented Neutrophils % 70.9 %
[2019-01-06 06:07] LABS: BUN/Creatinine Ratio 16 (6-26); Blood Urea Nitrogen 12 mg/dL (6-20); Calcium 8.5 mg/dL (8.6-10.3); Carbon Dioxide 29 mEq/L (23-29); Chloride 103 mEq/L (98-107); Glucose 123 mg/dL (70-105); Osmolality,Calculated 293 (280-300); Sodium 141 mEq/L (136-145); eGFR For Non-African Americans > 60 (> 60)
[2019-01-06 07:07] VITALS: BP 129/80
[2019-01-06] MEDS: Budesonide/Formoterol 160/4.5 1 PUFF INH IH SCH (07:17)
--- NOTE | 2019-01-06 08:50 | Pulmonology Progress Note ---
<Marisabel Forrester - Last Filed: 01/06/19 13:33> Date of Encounter: 01/06/19 Time of Encounter: 09:20 Assessment and Plan (1) COPD (chronic obstructive pulmonary disease) Status: Suspected Suspected COPD but has coronavirus positive and shortness of breath could be attributed to that. She has no previous diagnosis of COPD. CT shows diffusely multifocal bilateral ground glass opacities. She also was noted to have mediastinal and bilateral hilar adenopathy on the CT chest. -Completed bronchoscopy yesterday -Pending cytology results -Continue to taper prednisone -Follow outpatient with pulmonology for PFTs and CARMEN polysomnogram Qualifiers: COPD type: unspecified COPD Qualified Code(s): J44.9 - Chronic obstructive pulmonary disease, unspecified (2) Tobacco abuse Status: Acute 20 pack year history and current smoker. Received tobacco cessation counseling. (3) Morbid obesity with BMI of 40.0-44.9, adult Status: Chronic BMI 44.2, could have obesity hypoventilation syndrome. Would benefit from outpatient obstructive sleep apnea evaluation with pulmonology. Subjective Interval history: Ms. Mc was seen at bedside this morning. She noted this morning her symptoms have improved and has remained without supplemental oxygen the past 24 hours. She denies fever, chills, nausea, emesis, or chest pain. Objective PUL Vital signs: Last Vital Signs Temp 98.2 F 01/06/19 07:06 Pulse 88 01/06/19 07:06 Resp 16 01/06/19 07:17 BP 129/80 01/06/19 07:06 Pulse Ox 93 01/06/19 07:17 General appearance: no acute distress Eyes: nonicteric ENT: oropharynx moist Neck: supple Auscultation: bilateral: clear Cardiovascular: regular rate and rhythm Gastrointestinal: normoactive bowel sounds, soft, non-tender, non-distended Integumentary: normal Extremities: no cyanosis, no edema Musculoskeletal: no deformities pupils equal and round mood appropriate, affect normal Results - Laboratory Findings CBC and BMP: 01/06/19 04:54 01/06/19 04:54 Abnormal lab findings: Abnormal lab results WBC 15.1 K/mcL (4.3-11.1) H 01/06/19 04:54 Neutrophils # 10.7 K/mcL (1.6-8.9) H 01/06/19 04:54 Glucose 123 mg/dL (70-105) H 01/06/19 04:54 Hemoglobin A1c 5.9 % (-5.6) H 01/02/19 10:59 Calcium 8.5 mg/dL (8.6-10.3) L 01/06/19 04:54 Phosphorus 2.0 mg/dL (2.7-4.5) L 01/02/19 04:43 Total Bilirubin 0.2 mg/dL (0.3-1.0) L 01/02/19 04:43 Serum Total Protein 6.3 g/dL (6.4-8.9) L 01/02/19 04:43 Albumin 3.4 g/dL (3.5-5.7) L 01/02/19 04:43 LDL Cholesterol, Calc 115 mg/dL (0-99) H 01/02/19 04:43 HDL Cholesterol 32 mg/dL (40-59) L 01/02/19 04:43 Cholesterol/HDL Ratio 5.1 (0-4.9) H 01/02/19 04:43 Lipase 3 Units/L (11-82) L 01/01/19 18:14 Urine Clarity Cloudy (Clear) A 01/01/19 19:55 Urine Blood Moderate (Negative) H 01/01/19 19:55 Ur Squamous Epith Cells Many per lpf (None-Few) H 01/01/19 19:55 Urine Yeast Few per hpf (None Seen) H 01/01/19 19:55 Fluid Appearance Cloudy (Clear) A 01/05/19 11:12 Coronavirus OC43 (PCR) DETECTED (Not Detect) A 01/04/19 12:10 - Microbiology Findings Microbiology Findings: Microbiology, Last 48 Hours 01/03/19 01:15 Sputum Culture - Final Sputum 01/05/19 11:12 Gram Stain - Final Right Upper Lobe Lung Respiratory Culture - Preliminary Culture is incubating. 01/05/19 11:12 Gram Stain - Final Left Upper Lobe Lung Respiratory Culture - Preliminary Culture is incubating. - Clinical Findings Intake & Output: Intake & Output 01/05/19 01/06/19 01/06/19 23:59 07:59 15:59 Intake Total 740 / 740 Balance 740 / 740 Weight 110.2 kg Consult Discharge Plan - Plan Instructions: Prednisone (By mouth), Amoxicillin/Clavulanate Potassium (By mouth), Guaifenesin/Phenylephrine (By mouth), Pneumonia (DC) Additional Instructions: Follow-up appointments: If there is not an appointment listed below, please call your physician and schedule a follow-up appointment. If you have congestive heart failure and your symptoms return, make an appointment with your physician. Medication List: Carry an up to date list of medications you are taking at all time. We have given you an updated medication list including any new medications that you have been prescribed. Please provide that list to your primary provider Symptoms: If your condition changes or you experience any of the following symptoms, notify your physician immediately: Unusual or worsening pain, fever, persistent nausea and vomiting, bleeding, increase in swelling (especially in your legs), sudden weight gain, extreme dizziness, chest pain, increased drainage or redness from a wound or incision. Go to the emergency department if you experience a problem with breathing. Weights: If you have a history of swelling or shortness of breath, weigh yourself daily and notify your physician if you have a weight gain of two or more pounds in one day or 5 or more pounds in a week. If you experience any of the warning signs for stroke: Sudden numbness or weakness of the face, arm or leg; especially on one side of the body, sudden confusion, trouble speaking or understanding, sudden trouble seeing in one or both eyes, sudden trouble walking, dizziness, loss of balance or coordination, sudden sever headache with no cause; Call 911 or go to the emergency room. Stroke is a medical emergency. Some risk factors for stroke: Age, cigarette smoking, diabetes, excessive alcohol consumption, family history, high blood pressure, overweight, physical inactivity, prior stroke, heart attack, diagnosis of carotid artery stenosis or other artery disease. If you smoke, STOP: Smoking or tobacco use significantly increases your risk of heart and lung disease. Your chance of disease greatly increases if you continue to smoke. For more information, call the [place] tobacco quit line for smoking cessation 7-081-JCKV-NOW ( ) Referrals: Shae Smith MD [Partnered Physician] - (Appointment has been requested.) Jan Gustafson MD [Non-Partnered Physician] - 01/13/19 9:15 am () Prescriptions: RX: Albuterol Sulfate [Albuterol Inhaler] 2 puff IH Q4HR #1 hfa.aer.ad Amoxicillin/Clavulanate [Augmentin] 875 mg PO BIDWM #20 tablet RX: GuaiFENesin/Pseudophedrine [Mucinex D] 1 each PO BID #20 tab.er.[id number] RX: predniSONE [PredniSONE] 10 mg PO DAILY #9 tablet <Shae Smith M - Last Filed: 01/06/19 22:27> Date of Encounter: 01/06/19 Objective PUL Vital signs: Last Vital Signs Temp 98.2 F 01/06/19 07:06 Pulse 88 01/06/19 07:06 Resp 22 01/06/19 11:09 BP 129/80 01/06/19 07:06 Pulse Ox 94 01/06/19 11:09 Results - Laboratory Findings CBC and BMP: 01/06/19 04:54 01/06/19 04:54 Abnormal lab findings: Abnormal lab results WBC 15.1 K/mcL (4.3-11.1) H 01/06/19 04:54 Neutrophils # 10.7 K/mcL (1.6-8.9) H 01/06/19 04:54 Glucose 123 mg/dL (70-105) H 01/06/19 04:54 Hemoglobin A1c 5.9 % (-5.6) H 01/02/19 10:59 Calcium 8.5 mg/dL (8.6-10.3) L 01/06/19 04:54 Phosphorus 2.0 mg/dL (2.7-4.5) L 01/02/19 04:43 Total Bilirubin 0.2 mg/dL (0.3-1.0) L 01/02/19 04:43 Serum Total Protein 6.3 g/dL (6.4-8.9) L 01/02/19 04:43 Albumin 3.4 g/dL (3.5-5.7) L 01/02/19 04:43 LDL Cholesterol, Calc 115 mg/dL (0-99) H 01/02/19 04:43 HDL Cholesterol 32 mg/dL (40-59) L 01/02/19 04:43 Cholesterol/HDL Ratio 5.1 (0-4.9) H 01/02/19 04:43 Lipase 3 Units/L (11-82) L 01/01/19 18:14 Urine Clarity Cloudy (Clear) A 01/01/19 19:55 Urine Blood Moderate (Negative) H 01/01/19 19:55 Ur Squamous Epith Cells Many per lpf (None-Few) H 01/01/19 19:55 Urine Yeast Few per hpf (None Seen) H 01/01/19 19:55 Fluid Appearance Cloudy (Clear) A 01/05/19 11:12 Coronavirus OC43 (PCR) DETECTED (Not Detect) A 01/04/19 12:10 - Microbiology Findings Microbiology Findings: Microbiology, Last 48 Hours 01/01/19 18:57 Blood Culture - Final Peripheral Venipuncture No growth. Final report. 01/01/19 19:32 Blood Culture - Final Peripheral Venipuncture No growth. Final report. 01/05/19 11:12 Gram Stain - Final Right Upper Lobe Lung Respiratory Culture - Preliminary Culture is incubating. 01/05/19 11:12 Gram Stain - Final Left Upper Lobe Lung Respiratory Culture - Preliminary 01/05/19 11:12 Fungal Culture - Preliminary Left Upper Lobe Lung Culture is incubating. 01/05/19 11:12 Fungal Culture - Preliminary Right Upper Lobe Lung Culture is incubating. 01/03/19 01:15 Sputum Culture - Final Sputum - Clinical Findings Intake & Output: Intake & Output 01/06/19 01/06/19 01/06/19 07:59 15:59 23:59 Intake Total 270 / 270 Balance 270 / 270 Weight 110.2 kg - Attending Attestation I examined this patient and my medical decision-making was reviewed with the Resident Physician. I agree with the documented findings, disposition and treat ment plan as described except to the extent set forth below. Patient seen and examined. Labs, radiology, chart personally reviewed. 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 Patient advised to quit smoking and she might need to workup for sleep disorder breathing.
[2019-01-06] MEDS: GuaiFENesin/Pseudophedrine TABLET PO SCH (08:51)
[2019-01-06] MEDS: Acetaminophen 325 MG TABLET PO PRN (08:56)
[2019-01-06] MEDS ORDERED: cefTRIAXone 2,000 MG in Water for inj. (sterile) 20 ML 20 ML IVP SCH (09:00)
[2019-01-06] MEDS ORDERED: predniSONE 20 MG TABLET PO SCH (09:00)
[2019-01-06] MEDS ORDERED: Azithromycin 500 MG in D5% in Water 250 ML IVPB SCH (09:00)
--- NOTE | 2019-01-06 09:33 | Discharge Summary ---
- NOTES TO OUTPATIENT PROVIDER Notes to Outpatient Provider: f/u with pulm within a month for test results and PFT, CARMEN. F/u with pcp within a week. Orders not resulted at time of discharge: Pending orders 01/01/19 19:32 Culture,Blood [BC] Stat 01/05/19 11:12 AFB Culture, Respiratory [TB] Routine AFB Culture, Respiratory [TB] Routine Culture,Respiratory [RM] Routine Culture,Respiratory [RM] Routine Fungal Culture [MYC] Routine Fungal Culture [MYC] Routine Gram Stain [RM] Routine Gram Stain [RM] Routine 01/05/19 11:17 Cytology [PTH] Routine Date of Encounter: 01/06/19 Time of Encounter: 09:29 - Discharge Diagnosis (1) Pneumonia Priority: Primary Status: Acute Qualifiers: Pneumonia type: due to unspecified organism Laterality: left Lung location: upper lobe of lung Qualified Code(s): J18.1 - Lobar pneumonia, unspecified organism (2) Acute hypoxemic respiratory failure Priority: Primary Status: Acute (3) Sepsis Priority: Primary Status: Resolved Qualifiers: Sepsis type: sepsis due to unspecified organism Qualified Code(s): A41.9 - Sepsis, unspecified organism (4) DVT prophylaxis Priority: Primary Status: Acute Hospital course: Ms. Mc is a 43 year old female who presents to ER with complaints of cough, wheezing, shortness breath, and fever. She has been dealing with bronchitis and wheezing since September,. However, symptoms worsened significantly over the last 2 to 3 days to the point where she is extremely short of breath. She has been using nebulized breathing treatments with little relief. She therefore came to the ER where she was diagnosed with pneumonia. She had blood cultures drawn and was on antibiotics. She was then admitted to hospitalist service. She was febrile in the ER and reports history of subjective fevers at home for last 24 hours. She denies any headache, body aches, myalgias, vomiting, or diarrhea. She denies any chest pain other than mild pain with coughing. She denies any hemoptysis. She denies any ill contacts with influenza. She is a smoker and is trying to cut back on her smoking habits. She has never been diagnosed with COPD or asthma. However, she has been using inhalers and nebulizers off and on for the last few years. 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 There have been no reports of influenza at the halfway, however. Chest x-ray revealed possible pneumonia, patient was started on IV Rocephin and azithromycin. She also started on IV steroids and bronchodilators due to severe congestion and shortness breath. She had a latency stay due to slow improvement in symptoms, a CT chest was performed on 01/04, which revealed diffuse groundglass opacity on both lung del angel. She underwent a bronchoscopy on 01/05, mucous plugs was noted on the lavage fluid, BAL was sent for culture and cytology. The discharge today, patient reported much improved symptoms, vital signs were stable, she is off oxygen, and tolerated ambulating. She will be discharged home, was instructed to continue follow-up PCP and pulmonology for PFT and CARMEN studies. She will also follow-up with pulmonology for bronchoscopy study results. She will continue to take oral antibiotics and steroids to full courses as ordered. Discharge discussed with: patient Time spent discussing smoking cessation with patient: more than 10 minutes - Time Spent with Patient Total time spent providing and/or coordinating discharge services: 45 mins. Greater than 30 minutes - Discharge Medications Prescriptions: Albuterol Neb [Proventil Neb] 2.5 mg IH Q2H PRN #30 inhsol PRN Reason: Shortness Of Breath/Wheezing Amoxicillin/Clavulanate [Augmentin] 875 mg PO BIDWM #20 tablet GuaiFENesin/Pseudophedrine [Mucinex D] 1 each PO BID #20 tab.er.12h predniSONE [PredniSONE] 10 mg PO DAILY #9 tablet Home Medications: Albuterol Sulfate [Albuterol Inhaler] 2 puff IH Q4HR #1 hfa.aer.ad 12/04/18 [Rx] Albuterol Neb [Proventil Neb] 2.5 mg IH Q2H PRN #30 inhsol 01/06/19 [Rx] Amoxicillin/Clavulanate [Augmentin] 875 mg PO BIDWM #20 tablet 01/06/19 [Rx] GuaiFENesin/Pseudophedrine [Mucinex D] 1 each PO BID #20 tab.er.12h 01/06/19 [Rx] predniSONE [PredniSONE] 10 mg PO DAILY #9 tablet 01/06/19 [Rx] Allergies/Adverse Reactions: Allergy/AdvReac Type Severity Reaction Status Date / Time No Known Allergies Allergy Verified 01/02/19 18:51 Date of admission: 01/01/19 22:08 Primary care physician: PCP NONE Consults: 01/02/19 08:46 Consult to Nurse Navigator [CONS] Routine Comment: PNEUMONIA 01/04/19 11:12 Consult to Pulmonology [CONS] Routine Consulting Provider: [facility] Reason for Consult: smoker, PNA and undiagnosed COPD Call Completed: Yes Anticipated date of discharge: 01/06/19 - Constitutional Vitals: Temp Pulse Resp BP Pulse Ox 98.2 F 88 16 129/80 93 01/06/19 07:06 01/06/19 07:06 01/06/19 07:17 01/06/19 07:06 01/06/19 07:17 General appearance: Present: cooperative, A&O X 3, morbidly obese, pleasant, answers questions appropriately Exam: PHYSICAL EXAMINATION: GENERAL APPEARANCE: The patient is alert, oriented and in no acute distress. HEENT: Head is normocephalic. The sinuses are nontender. Pupils are equal and reactive. The nares are patent. Oropharynx clear without lesions. NECK: Supple without lymphadenopathy. HEART: Regular rate and rhythm. LUNGS: bilateral wheezes are heard. ABDOMEN: Soft, nontender, nondistended with good bowel sounds heard. Inguinal area is normal. EXTREMITIES: Without cyanosis, clubbing or edema. NEUROLOGICAL: Gross nonfocal. SKIN: Warm and dry without any rash. - Patient Status Disposition: Home, Self-Care Condition: Good Functional capacity at discharge: independent ambulation Overall status at discharge: patient is progressing back to baseline - Discharge Instructions Follow Up With: Jan Gustafson MD [Non-Partnered Physician] - 01/13/19 9:15 am () - Diet and Activity Activity: increase activity as tolerated Diet: advance to your usual diet
== END 2019-01-06 12:59 | disposition home or self-care (01) | DRG 871 ==
LOC: EMEROOARM 17:52 → 3BNU 17:52 → SUATTDRO 22:08
PROVIDERS: ADMIT Family Medicine; ATTEND Family Medicine

== ENCOUNTER 2019-08-03 19:15 | Observation (INO) ==
[2019-08-03] MEDS ORDERED: predniSONE 20 MG TABLET PO ONE (19:30)
[2019-08-03] MEDS ORDERED: Ipratropium/Albuterol Neb 3 ML IH ONE ×2 (19:30→20:24)
--- NOTE | 2019-08-03 19:34 | Emergency Department Note ---
Disposition Clinical Impression: Bronchitis Disposition: Still a Patient Referrals: Jan Gustafson MD [Primary Care Provider] - Forms: ED Satisfaction Letter Time of Disposition: 20:51 SOB HPI - General Chief Complaint: ED Upper Respiratory Infection Stated Complaint: wheezing/weakness/asthma Time Seen by Provider: 08/03/19 19:22 Source: patient Mode of arrival: private vehicle Limitations: no limitations Nursing Notes Reviewed: Yes Vital Signs Reviewed: Yes - History of Present Illness Pt Subjective Complaint: shortness of breath, cough Onset (ago): week(s) Consistency/Duration: intermittent Improves with: bronchodilators Worsens with: coughing Known history of: asthma Associated symptoms: Reports: chest pain, fever, cough, wheezing, sputum production Treatment prior to arrival: bronchodilator Cough present: Yes Cough Description: Non-Productive Cough Frequency: Intermittent - Related Data Home oxygen amount: none Previous Rx's Medication Instructions Recorded predniSONE [PredniSONE] 10 mg PO TAPER #30 tablet 03/20/19 Allergies Allergy/AdvReac Type Severity Reaction Status Date / Time No Known Allergies Allergy Verified 08/03/19 19:18 All systems ED: reviewed and negative except as stated. Constitutional: Reports: fever Eyes: Reports: as per HPI ENT ED: Reports: as per HPI Cardiovascular: Reports: chest pain Respiratory: Reports: cough, dyspnea, wheezes, sputum production Gastrointestinal: Reports: as per HPI Genitourinary: Reports: as per HPI Musculoskeletal: Reports: as per HPI Integumentary: Reports: as per HPI Neurological: Reports: as per HPI Psychiatric: Reports: as per HPI Endocrine: Reports: as per HPI Hematological/Lymphatic: Reports: as per HPI Allergic/Immunologic: Reports: as per HPI Past Medical History - Past Medical History Source: old records reviewed Medical history: Reports: asthma, other Surgical history: Reports: no surgical history Psychiatric history: Reports: anxiety, depression - Social History Smoking Status: Current every day smoker Smokeless Tobacco Status: No Alcohol use: Reports: none Drug use: Reports: none Physical Exam - General Limitations: no limitations General appearance: alert - Head Head exam: atraumatic - Eye Eye exam: Present: normal appearance - ENT ENT exam: normal exam - Neck Neck exam: Present: normal inspection, full ROM - Chest Chest inspection: Present: normal inspection, symmetric chest wall rise - Respiratory Respiratory exam: Present: wheezes, other (Diffuse respiratory wheezes, rhonchi. Nonproductive cough) - Cardiovascular Cardiovascular exam: Present: regular rate, normal rhythm - Rectal Exam Rectal exam: Present: deferred - Extremities Exam Extremities exam: Present: normal inspection - Neurological Exam Neurological exam: Present: alert, oriented X3, CN II-XII intact - Psychiatric Psychiatric exam: Present: normal affect, normal mood - Skin Skin exam: Present: warm, dry, intact Course Course Narrative: Patient presents with cough, wheezing. She has history of asthma. Active smoker. Bronchospastic on exam. Neb therapy and oral steroids ordered. I will obtain a chest x-ray and an EKG - Reevaluation(s) Reevaluation #1: Care of patient endorsed to Dr. Bashir at 20:45 pending labs, reevaluation. I anticipate this patient being admitted to the medicine service Time: 20:50 Vital Signs Temperature 98.4 F 08/03/19 19:18 Pulse Rate 90 08/03/19 19:18 Respiratory Rate 16 08/03/19 19:18 Blood Pressure 159/95 08/03/19 19:18 O2 Sat by Pulse Oximetry 97 08/03/19 19:18 Temperature 98.4 F 08/03/19 19:18 Pulse Rate 77 08/03/19 20:26 Respiratory Rate 20 08/03/19 20:37 Blood Pressure 160/90 08/03/19 20:26 O2 Sat by Pulse Oximetry 97 08/03/19 20:37 Oxygen Delivery Oxygen Delivery Room Air Shortness of Breath/Dyspnea - Lab Data Lab results reviewed: Yes I reviewed the patient's lab results. - Radiology Data Radiology results reviewed: Yes I reviewed the patient's radiology results. - EKG Data EKG attestation: Yes I reviewed and interpreted this EKG. EKG results narrative: Normal sinus rhythm rate 88 KS 142 QRS 87 QT/QTc 438/530. No acute ST segment elevation. Prolonged QT. Study compared to previous dated 03/20/19
[2019-08-03 21:42] LABS: Basophils # 0.1 K/mcL (0.0-0.2); Basophils % 0.4 %; Eosinophils # 1.6 K/mcL (0.0-0.6); Eosinophils % 8.3 %; Hematocrit 42.5 % (35.3-44.9); Hemoglobin 14.1 g/dL (11.5-15.4); Immature Granulocytes % 0.5 % (0-4); Lymphocytes # 4.2 K/mcL (0.6-4.6); Lymphocytes % 22.5 %; Mean Corpuscular HGB Conc 33.2 g/dL (31.6-35.5); Mean Corpuscular Volume 90.4 fL (83.0-100.0); Mean Platelet Volume 11.3 fL (9.4-12.4); Monocytes % 5.5 %; Neutrophils # 11.8 K/mcL (1.6-8.9); Platelet Count 321 K/mcL (140-400); Red Cell Distribution Width 13.6 % (11.5-14.5); Segmented Neutrophils % 62.8 %; White Blood Count 18.8 K/mcL (4.3-11.1)
[2019-08-03 21:48] LABS: Alanine Aminotransferase 5 Units/L (7-52); Albumin 3.6 g/dL (3.5-5.7); Albumin/Globulin Ratio 1.2 (1.1-2.2); Alkaline Phosphatase 55 Units/L (34-104); Aspartate Amino Transferase 9 Units/L (13-39); BUN/Creatinine Ratio 10 (6-26); Bilirubin,Total 0.2 mg/dL (0.3-1.0); Blood Urea Nitrogen 9 mg/dL (6-20); Calcium 8.2 mg/dL (8.6-10.3); Carbon Dioxide 23 mEq/L (23-29); Chloride 108 mEq/L (98-107); Glucose 118 mg/dL (70-105); Magnesium 1.8 mg/dL (1.6-2.6); Osmolality,Calculated 288 (280-300); Potassium 3.5 mEq/L (3.5-5.1); Sodium 139 mEq/L (136-145); Total Protein 6.6 g/dL (6.4-8.9); Troponin I < 0.03 ng/mL (< 0.04); eGFR For African Americans > 60 (> 60); eGFR For Non-African Americans > 60 (> 60)
--- NOTE | 2019-08-03 22:22 | Emergency Department Note ---
Disposition Clinical Impression: Bronchitis, Asthma exacerbation, Smoking addiction Disposition: Admitted As Inpatient Referrals: Jan Gustafson MD [Primary Care Provider] - Forms: ED Satisfaction Letter Time of Disposition: 22:22 General Adult HPI - General Chief complaint: ED Upper Respiratory Infection Stated complaint: wheezing/weakness/asthma Time Seen by Provider: 08/03/19 19:22 Source: patient Mode of arrival: private vehicle Limitations: no limitations - History of Present Illness Pain Scale: 0 - Related Data Allergies Allergy/AdvReac Type Severity Reaction Status Date / Time No Known Allergies Allergy Verified 08/03/19 22:02 Constitutional: Reports: fever Eyes: Reports: as per HPI ENT ED: Reports: as per HPI Cardiovascular: Reports: chest pain Respiratory: Reports: cough, dyspnea, wheezes, sputum production Gastrointestinal: Reports: as per HPI Genitourinary: Reports: as per HPI Musculoskeletal: Reports: as per HPI Integumentary: Reports: as per HPI Neurological: Reports: as per HPI Psychiatric: Reports: as per HPI Endocrine: Reports: as per HPI Hematological/Lymphatic: Reports: as per HPI Allergic/Immunologic: Reports: as per HPI Past Medical History - Past Medical History Medical history: Reports: asthma, other Surgical history: Reports: no surgical history Psychiatric history: Reports: anxiety, depression - Social History Smoking Status: Current every day smoker Smokeless Tobacco Status: No Alcohol use: Reports: none Drug use: Reports: none Physical Exam - General Limitations: no limitations General appearance: alert Course Vital Signs Temperature 98.4 F 08/03/19 19:18 Pulse Rate 90 08/03/19 19:18 Respiratory Rate 16 08/03/19 19:18 Blood Pressure 159/95 08/03/19 19:18 O2 Sat by Pulse Oximetry 97 08/03/19 19:18 Temperature 98.4 F 08/03/19 19:18 Pulse Rate 89 08/03/19 21:59 Respiratory Rate 22 08/03/19 21:59 Blood Pressure 133/88 08/03/19 21:59 O2 Sat by Pulse Oximetry 94 08/03/19 21:59 Oxygen Delivery Oxygen Delivery Room Air Medical Decision Making - MDM Narrative Medical decision making narrative: Patient was signed out to me from Dr. Li Patient seen and examined by myself. Plan was to admit for this bronchitis and wheezing. He did give her multiple breathing treatments which seemed to help with her wheezing. She does have a long history of asthma. She is still smoking. She has at least a [id number] history of smoking. Her labs were rev iewed. Troponin was negative. Chest x-ray showed perihilar infiltrates consistent with a bronchitis type pattern. She does have a white count of 18,000. We have held on antibiotics until the hospitalist evaluate her. She was given steroids. She denies being on any steroids or antibiotics recently. On my exam she still having some wheezing but seems to be much better. Her vitals are stable. She is not tachycardic or hypoxic. I did discuss the case with the hospitalist. - Medical Records Medical records reviewed: Yes I reviewed the patient's medical records. - Lab Data Lab results reviewed: Yes I reviewed the patient's lab results. Result diagrams: 08/03/19 21:10 08/03/19 21:10 Lab Results 08/03/19 08/03/19 08/03/19 Range/Units 21:10 21:10 21:10 WBC 18.8 H (4.3-11.1) K/mcL RBC 4.70 (3.82-4.97) M/mcL Hgb 14.1 (11.5-15.4) g/dL Hct 42.5 (35.3-44.9) % MCV 90.4 (83.0-100.0) fL MCH 30.0 (28.0-33.3) pg MCHC 33.2 (31.6-35.5) g/dL RDW 13.6 (11.5-14.5) % Plt Count 321 (140-400) K/mcL MPV 11.3 (9.4-12.4) fL Immature Gran % 0.5 (0-4) % Seg Neutrophils % 62.8 % Lymphocytes % 22.5 % Monocytes % 5.5 % Eosinophils % 8.3 % Basophils % 0.4 % Neutrophils # 11.8 H (1.6-8.9) K/mcL Lymphocytes # 4.2 (0.6-4.6) K/mcL Monocytes # 1.0 (0.0-1.3) K/mcL Eosinophils # 1.6 H (0.0-0.6) K/mcL Basophils # 0.1 (0.0-0.2) K/mcL Sodium 139 (136-145) mEq/L Potassium 3.5 (3.5-5.1) mEq/L Chloride 108 H (98-107) mEq/L Carbon Dioxide 23 (23-29) mEq/L BUN 9 (6-20) mg/dL Creatinine 0.88 (0.60-1.20) mg/dL Est GFR ( Amer) > 60 (> 60) Est GFR (Non-Af Amer) > 60 (> 60) BUN/Creatinine Ratio 10 (6-26) Glucose 118 H (70-105) mg/dL Calculated Osmolality 288 (280-300) Calcium 8.2 L (8.6-10.3) mg/dL Magnesium 1.8 (1.6-2.6) mg/dL Total Bilirubin 0.2 L (0.3-1.0) mg/dL AST 9 L (13-39) Units/L ALT 5 L (7-52) Units/L Alkaline Phosphatase 55 (34-104) Units/L Troponin I < 0.03 (< 0.04) ng/mL B-Natriuretic Peptide 40 (Less than 100) pg/mL Serum Total Protein 6.6 (6.4-8.9) g/dL Albumin 3.6 (3.5-5.7) g/dL Globulin 3.0 (2.4-3.5) g/dL Albumin/Globulin Ratio 1.2 (1.1-2.2) - Radiology Data Radiology results reviewed: Yes I reviewed the patient's radiology results.
[2019-08-04] MEDS ORDERED: Mag Hydrox/Al Hydrox/Simeth 30 ML UDC PO PRN (07:44)
[2019-08-04] MEDS ORDERED: Ondansetron 4 MG/2 ML VIAL IVP PRN (07:44)
[2019-08-04] MEDS ORDERED: Naloxone 0.4 MG/ML INJ IVP PRN (07:44)
[2019-08-04] MEDS ORDERED: Acetaminophen 325 MG TABLET PO PRN (07:44)
[2019-08-04] MEDS ORDERED: *HR* Promethazine 25 MG/ML VIAL IVP PRN (07:44)
[2019-08-04] MEDS ORDERED: traMADol 50 MG TABLET PO PRN (07:44)
[2019-08-04] MEDS ORDERED: Ipratropium/Albuterol Neb 3 ML IH PRN (07:45)
--- NOTE | 2019-08-04 08:02 | Internal Med History&Physical ---
Date of Encounter: 08/04/19 Time of Encounter: 07:57 Internal Medicine - H&P: HPI Admitted From: Home Plans for Post Hospital Care: Home History of present illness: Ms. Mc is a 43 year old female who recently was diagnosis with asthma and i s active smoker currently presented with productive cough and shortness of breath for a couple of weeks. She was diagnosis with asthma couple months ago by pulmonology, was prescribed as needed inhalers. She reported she barely uses them. Her symptoms started a couple weeks ago with cough with whitish mucus, she denied fever, chills, night sweats at that time. Her symptoms progressively got worse which prompted her to to the ED. She reported one pack a day smoking for 20 years, she also was diagnosis with obstructive sleep apnea. She reported absence of chest pain, palpitation, lightheadedness, or presyncope. In the ED, patient vital signs were stable, labs were unremarkable. Chest x-ray showed bilateral perihilar peribronchial cuffing, typical for bronchitis or reactive airway disease, focal infiltrate in bilateral perihilar region, suspicious for pneumonitis. She received bronchodilators and IV steroids, she was admitted for further evaluation and management. CODE STATUS discussed with patient, she will be full code while in the hospital. Past Med Surg Social Fam HX - Past Medical History Medical history: asthma, other Additional medical history: sleep apnea Psychiatric history: anxiety, depression - Past Surgical History Surgical History: no surgical history - Social History Smoking Status: Current every day smoker Smokeless Tobacco Status: No Alcohol use: none Drug use: none - Family History Mother Adopted: No Family Member Ethnicity: Non- Living Status: Hx Family Cardiac Disorders: No Hx Family Respiratory Disorders: No (sleep apnea) Hx Family Cancer: Yes (Leukemia) Hx Family GI Disorders: No Hx Family Endocrine Disorder: Yes (DM) Hx Family Neuromuscular Disorders: No Hx Family Neurologic Disorders: No Hx Family HEENT Disorders: No Hx Family Autoimmune Disorders: No Father Living Status: Still Living Hx Family Respiratory Disorders: No Internal Medicine - H&P: Meds Allergy/AdvReac Type Severity Reaction Status Date / Time No Known Allergies Allergy Verified 08/03/19 22:02 All Systems PM: A 10-system review of systems was performed and is negative for pertinent findings except as documented above in the HPI. Review of systems: REVIEW OF SYSTEMS: CONSTITUTIONAL: No weight loss, fever, chills, weakness or fatigue. HEENT: Eyes: No visual loss, blurred vision, double vision or yellow sclerae. Ears, Nose, Throat: No hearing loss, sneezing, congestion, runny nose or sore throat. SKIN: No rash or itching. CARDIOVASCULAR: No chest pain, chest pressure or chest discomfort. No palpitations or edema. RESPIRATORY: see HPI. GASTROINTESTINAL: No anorexia, nausea, vomiting or diarrhea. No abdominal pain or blood. GENITOURINARY: No dysuria, urgency, or frequency. NEUROLOGICAL: No headache, dizziness, syncope, paralysis, ataxia, numbness or tingling in the extremities. No change in bowel or bladder control. MUSCULOSKELETAL: No muscle, back pain, joint pain or stiffness. HEMATOLOGIC: No anemia, bleeding or bruising. LYMPHATICS: No enlarged nodes. No history of splenectomy. PSYCHIATRIC: No history of depression or anxiety. ENDOCRINOLOGIC: No reports of sweating, cold or heat intolerance. No polyuria or polydipsia. - Constitutional Vitals: Temp Pulse Resp BP Pulse Ox 97.7 F 67 16 115/74 95 08/04/19 07:43 08/04/19 07:43 08/04/19 07:43 08/04/19 07:43 08/04/19 07:43 General appearance: Present: A&O X 3 Exam: PHYSICAL EXAMINATION: GENERAL APPEARANCE: The patient is alert, oriented and in no acute distress. HEENT: Head is normocephalic. The sinuses are nontender. Pupils are equal and reactive. The nares are patent. Oropharynx clear without lesions. NECK: Supple without lymphadenopathy. HEART: Regular rate and rhythm. LUNGS: bilateral crackles and wheezes are heard. ABDOMEN: Soft, nontender, nondistended with good bowel sounds heard. Inguinal area is normal. EXTREMITIES: Without cyanosis, clubbing or edema. NEUROLOGICAL: Gross nonfocal. SKIN: Warm and dry without any rash. Internal Med - H&P Results - Labs CBC & Chem 7: 08/03/19 21:10 08/03/19 21:10 Labs: Short CBC 08/03/19 Range/Units 21:10 WBC 18.8 H (4.3-11.1) K/mcL Hgb 14.1 (11.5-15.4) g/dL Hct 42.5 (35.3-44.9) % Plt Count 321 (140-400) K/mcL Neutrophils # 11.8 H (1.6-8.9) K/mcL BMP 08/03/19 21:10 Sodium 139 Potassium 3.5 Chloride 108 H Carbon Dioxide 23 BUN 9 Creatinine 0.88 Glucose 118 H Calcium 8.2 L Cardiac Enzymes 08/03/19 Range/Units 21:10 Troponin I < 0.03 (< 0.04) ng/mL Liver Function 08/03/19 Range/Units 21:10 Total Bilirubin 0.2 L (0.3-1.0) mg/dL AST 9 L (13-39) Units/L ALT 5 L (7-52) Units/L Alkaline Phosphatase 55 (34-104) Units/L Albumin 3.6 (3.5-5.7) g/dL - Impressions ITS Impressions Chest X-Ray 08/03/19 19:30 IMPRESSION: 1. Bilateral perihilar peribronchial cuffing is typical of bronchitis or reactive airways disease. 2. Focal infiltrate is evident bilateral parahilar regions, presumably pneumonitis. D/ / Yaw Hammonds / Yaw Hammonds Interpreting Provider: Yaw Hammonds - Assessment and Plan (1) Asthma exacerbation Current Visit: Yes Status: Acute Assessment and plan: Patient symptoms are consistent with mild to moderate asthma exacerbation, like ly was treated by pneumonia. Blood culture, sputum culture, respiratory panel were ordered. Empirically patient will be started on IV antibiotics with azithromycin and Rocephin. She will also receive bronchodilators and IV steroids. Patient was strongly encouraged to stop smoking. Qualifiers: Asthma severity: moderate Asthma persistence: persistent Qualified Code(s): J45.41 - Moderate persistent asthma with (acute) exacerbation (2) Pneumonia Current Visit: Yes Status: Acute Assessment and plan: Blood culture, sputum culture, and respiratory panel were ordered. Continue empirical IV antibiotics. Qualifiers: Pneumonia type: due to unspecified organism Laterality: left Lung location: upper lobe of lung Qualified Code(s): J18.1 - Lobar pneumonia, unspecified organism (3) Morbid obesity with BMI of 40.0-44.9, adult Current Visit: No Status: Chronic Assessment and plan: Weight control discussed with patient. (4) Tobacco abuse Current Visit: No Status: Acute Assessment and plan: Smoke cessation discussed with patient. (5) DVT prophylaxis Current Visit: Yes Status: Acute Assessment and plan: Heparin subcutaneous. - Time Spent With Patient Total time spent is greater than 50% in coordination of care (as documented) at patient's floor/unit and/or counseling patient: Greater than 35 minutes
[2019-08-04] MEDS: methylPREDNISolone 125 MG/2 ML VIAL IVP SCH ×3 (10:09→23:51)
[2019-08-04] MEDS: Nicotine 21 MG PATCH.TD24 TD SCH (10:09)
[2019-08-04] MEDS: Azithromycin 500 MG in 0.9 % Sodium Chloride 250 ML IVPB SCH (10:10)
[2019-08-04] MEDS: Ipratropium/Albuterol Neb 3 ML IH SCH ×5 (10:30→23:37)
[2019-08-04] MEDS: cefTRIAXone 2,000 MG in Water for inj. (sterile) 20 ML IVP SCH (16:43)
[2019-08-04] MEDS: *HR* Heparin 5,000 UNIT/ML VIAL SQ SCH (16:44)
[2019-08-05] MEDS: Ipratropium/Albuterol Neb 3 ML IH SCH ×5 (04:12→20:30)
[2019-08-05 04:35] LABS: Hematocrit 40.6 % (35.3-44.9); Hemoglobin 13.3 g/dL (11.5-15.4); Mean Corpuscular HGB Conc 32.8 g/dL (31.6-35.5); Mean Corpuscular Hemoglobin 30.3 pg (28.0-33.3); Mean Corpuscular Volume 92.5 fL (83.0-100.0); Mean Platelet Volume 11.4 fL (9.4-12.4); Platelet Count 351 K/mcL (140-400); Red Blood Count 4.39 M/mcL (3.82-4.97); Red Cell Distribution Width 13.8 % (11.5-14.5); White Blood Count 22.3 K/mcL (4.3-11.1)
[2019-08-05 04:48] LABS: BUN/Creatinine Ratio 19 (6-26); Blood Urea Nitrogen 14 mg/dL (6-20); Calcium 8.7 mg/dL (8.6-10.3); Carbon Dioxide 26 mEq/L (23-29); Chloride 107 mEq/L (98-107); Glucose 184 mg/dL (70-105); Osmolality,Calculated 291 (280-300); Potassium 4.3 mEq/L (3.5-5.1); Sodium 138 mEq/L (136-145); eGFR For African Americans > 60 (> 60); eGFR For Non-African Americans > 60 (> 60)
[2019-08-05] MEDS: *HR* Heparin 5,000 UNIT/ML VIAL SQ SCH ×2 (05:52→17:01)
[2019-08-05] MEDS: cefTRIAXone 2,000 MG in Water for inj. (sterile) 20 ML IVP SCH ×2 (05:52→16:57)
[2019-08-05] MEDS: Nicotine 21 MG PATCH.TD24 TD SCH (08:23)
[2019-08-05] MEDS: methylPREDNISolone 125 MG/2 ML VIAL IVP SCH ×3 (08:39→23:19)
[2019-08-05] MEDS: Azithromycin 500 MG in 0.9 % Sodium Chloride 250 ML IVPB SCH (08:39)
--- NOTE | 2019-08-05 10:09 | Internal Med Progress Note ---
Hospitalist Progress Note - Encounter Date of Encounter: 08/05/19 Time of Encounter: 10:09 - Subjective Interval History: Patient seen and examined at bedside Currently states that she still feels very tired. She has a moist cough and is unable to cough anything up.Asked patient to give a sputum sample - Exam Vitals: Temp Pulse Resp BP Pulse Ox 97.8 F 78 16 127/74 94 08/05/19 07:55 08/05/19 07:55 08/05/19 07:55 08/05/19 07:55 08/05/19 07:55 Exam: PHYSICAL EXAMINATION: GENERAL APPEARANCE: The patient is alert, oriented and in no acute distress. HEENT: Head is normocephalic. The sinuses are nontender. Pupils are equal and reactive. The nares are patent. Oropharynx clear without lesions. NECK: Supple without lymphadenopathy. HEART: Regular rate and rhythm. LUNGS: bilateral crackles and wheezes are heard. ABDOMEN: Soft, nontender, nondistended with good bowel sounds heard. Inguinal area is normal. EXTREMITIES: Without cyanosis, clubbing or edema. NEUROLOGICAL: Gross nonfocal. SKIN: Warm and dry without any rash. - Assessment and Plan (1) Pneumonia Current Visit: Yes Status: Acute Assessment and Plan: Blood culture, sputum culture, and respiratory panel were ordered. Continue empirical IV antibiotics. will order sputum culture (2) DVT prophylaxis Current Visit: Yes Status: Acute Assessment and Plan: Heparin subcutaneous. (3) Morbid obesity with BMI of 40.0-44.9, adult Current Visit: No Status: Chronic Assessment and Plan: Weight control discussed with patient. (4) Tobacco abuse Current Visit: No Status: Acute Assessment and Plan: Smoke cessation discussed with patient. Nicotine patch (5) Asthma exacerbation Current Visit: Yes Status: Acute Assessment and Plan: Patient symptoms are consistent with mild to moderate asthma exacerbation, likely was treated by pneumonia. Blood culture, sputum culture, respiratory panel were ordered. Empirically patient will be started on IV antibiotics with azithromycin and Rocephin. She will also receive bronchodilators and IV steroids. Patient was strongly encouraged to stop smoking. 08/05 He is to have wheezing we will continue with IV steroids will stepped-down to 60 mg every 8 IV. Continue with IV antibiotics as well as bronchodilators Obtain sputum culture Oxygen as needed Respiratory panel pending Nicotine patch encouraged patient to stop smoking Blood culture sputum culture pending We will add Mucinex - Time Spent with Patient Total time spent is greater than 50% in coordination of care (as documented) at patient's floor/unit and/or counseling patient: Internal Medicine: Result - Labs CBC & Chem 7: 08/05/19 03:50 08/05/19 03:50 Labs: Short CBC 08/05/19 Range/Units 03:50 WBC 22.3 H (4.3-11.1) K/mcL Hgb 13.3 (11.5-15.4) g/dL Hct 40.6 (35.3-44.9) % Plt Count 351 (140-400) K/mcL BMP 08/05/19 03:50 Sodium 138 Potassium 4.3 Chloride 107 Carbon Dioxide 26 BUN 14 Creatinine 0.73 Glucose 184 H Calcium 8.7 Consult Discharge Plan - Plan Referrals: Jan Gustafson MD [Primary Care Provider] - 08/10/19 9:15 am (Appointment has been requested.) (1) Pneumonia Qualifiers: Pneumonia type: due to unspecified organism Laterality: left Lung location: upper lobe of lung Qualified Code(s): J18.1 - Lobar pneumonia, unspecified organism (5) Asthma exacerbation Qualifiers: Asthma severity: moderate Asthma persistence: persistent Qualified Code(s): J45.41 - Moderate persistent asthma with (acute) exacerbation
[2019-08-06] MEDS: Ipratropium/Albuterol Neb 3 ML IH SCH ×6 (00:42→20:26)
[2019-08-06] MEDS: *HR* Heparin 5,000 UNIT/ML VIAL SQ SCH ×2 (05:48→18:10)
[2019-08-06] MEDS: cefTRIAXone 2,000 MG in Water for inj. (sterile) 20 ML IVP SCH ×2 (05:48→18:10)
[2019-08-06 06:16] LABS: Basophils % 0.1 %; Hematocrit 39.1 % (35.3-44.9); Hemoglobin 12.6 g/dL (11.5-15.4); Immature Granulocytes % 1.6 % (0-4); Lymphocytes # 2.2 K/mcL (0.6-4.6); Lymphocytes % 10.5 %; Mean Corpuscular HGB Conc 32.2 g/dL (31.6-35.5); Mean Corpuscular Hemoglobin 30.2 pg (28.0-33.3); Mean Corpuscular Volume 93.8 fL (83.0-100.0); Mean Platelet Volume 11.3 fL (9.4-12.4); Monocytes # 0.9 K/mcL (0.0-1.3); Monocytes % 4.1 %; Neutrophils # 17.8 K/mcL (1.6-8.9); Platelet Count 344 K/mcL (140-400); Red Blood Count 4.17 M/mcL (3.82-4.97); Red Cell Distribution Width 14.1 % (11.5-14.5); Segmented Neutrophils % 83.7 %; White Blood Count 21.2 K/mcL (4.3-11.1)
[2019-08-06 06:32] LABS: BUN/Creatinine Ratio 21 (6-26); Blood Urea Nitrogen 15 mg/dL (6-20); Calcium 8.7 mg/dL (8.6-10.3); Carbon Dioxide 27 mEq/L (23-29); Chloride 105 mEq/L (98-107); Glucose 139 mg/dL (70-105); Osmolality,Calculated 293 (280-300); Potassium 4.2 mEq/L (3.5-5.1); Sodium 140 mEq/L (136-145); eGFR For African Americans > 60 (> 60); eGFR For Non-African Americans > 60 (> 60)
[2019-08-06] MEDS: Nicotine 21 MG PATCH.TD24 TD SCH (09:09)
[2019-08-06] MEDS: Azithromycin 500 MG in 0.9 % Sodium Chloride 250 ML IVPB SCH (09:10)
[2019-08-06] MEDS: methylPREDNISolone 125 MG/2 ML VIAL IVP SCH ×2 (09:10→18:11)
--- NOTE | 2019-08-06 11:49 | Internal Med Progress Note ---
Hospitalist Progress Note - Encounter Date of Encounter: 08/06/19 Time of Encounter: 11:47 - Subjective Interval History: Patient was seen and examined at bedside does not appear to be any respiratory distress. Patient states that she has a headache and body ache but breathing is improving continues to have cough. - Exam Vitals: Temp Pulse Resp BP Pulse Ox 98.2 F 64 16 119/69 95 08/06/19 03:37 08/06/19 03:37 08/06/19 11:13 08/06/19 03:37 08/06/19 11:13 Exam: PHYSICAL EXAMINATION: GENERAL APPEARANCE: The patient is alert, oriented and in no acute distress. HEENT: Head is normocephalic. The sinuses are nontender. Pupils are equal and reactive. The nares are patent. Oropharynx clear without lesions. NECK: Supple without lymphadenopathy. HEART: Regular rate and rhythm. LUNGS: Faint wheezes are heard. ABDOMEN: Soft, nontender, nondistended with good bowel sounds heard. Inguinal area is normal. EXTREMITIES: Without cyanosis, clubbing or edema. NEUROLOGICAL: Gross nonfocal. SKIN: Warm and dry without any rash. - Assessment and Plan (1) Pneumonia Current Visit: Yes Status: Acute Assessment and Plan: Blood culture, sputum culture, and respiratory panel were ordered. Continue empirical IV antibiotics. will order sputum culture 08/06 Blood cultures sputum cultures and respiratory panel are pending at this time Continue with IV antibiotics Continue with breathing treatments (2) DVT prophylaxis Current Visit: Yes Status: Acute Assessment and Plan: Heparin subcutaneous. (3) Morbid obesity with BMI of 40.0-44.9, adult Current Visit: No Status: Chronic Assessment and Plan: Weight control discussed with patient. (4) Tobacco abuse Current Visit: No Status: Acute Assessment and Plan: Smoke cessation discussed with patient. Nicotine patch (5) Asthma exacerbation Current Visit: Yes Status: Acute Assessment and Plan: Patient symptoms are consistent with mild to moderate asthma exacerbation, likely was treated by pneumonia. Blood culture, sputum culture, respiratory panel were ordered. Empirically patient will be started on IV antibiotics with azithromycin and Rocephin. She will also receive bronchodilators and IV steroids. Patient was strongly encouraged to stop smoking. 08/05 He is to have wheezing we will continue with IV steroids will stepped-down to 60 mg every 8 IV. Continue with IV antibiotics as well as bronchodilators Obtain sputum culture Oxygen as needed Respiratory panel pending Nicotine patch encouraged patient to stop smoking Blood culture sputum culture pending We will add Mucinex 08/06 Wheezing is improved today faint scattered wheezes we will continue with 60 mg Solu-Medrol IV every 12 Continue with IV antibiotics as well as bronchodilators Respiratory panel pending Continue with nicotine patch Blood cultures sputum culture pending Continue Mucinex - Time Spent with Patient Total time spent is greater than 50% in coordination of care (as documented) at patient's floor/unit and/or counseling patient: Internal Medicine: Result - Labs CBC & Chem 7: 08/06/19 05:08 08/06/19 05:08 Labs: Short CBC 08/06/19 Range/Units 05:08 WBC 21.2 H (4.3-11.1) K/mcL Hgb 12.6 (11.5-15.4) g/dL Hct 39.1 (35.3-44.9) % Plt Count 344 (140-400) K/mcL Neutrophils # 17.8 H (1.6-8.9) K/mcL BMP 08/06/19 05:08 Sodium 140 Potassium 4.2 Chloride 105 Carbon Dioxide 27 BUN 15 Creatinine 0.70 Glucose 139 H Calcium 8.7 Consult Discharge Plan - Plan Referrals: Jan Gustafson MD [Primary Care Provider] - 08/10/19 9:15 am (Appointment has david ferguson requested.) (1) Pneumonia Qualifiers: Pneumonia type: due to unspecified organism Laterality: left Lung location: upper lobe of lung Qualified Code(s): J18.1 - Lobar pneumonia, unspecified organism (5) Asthma exacerbation Qualifiers: Asthma severity: moderate Asthma persistence: persistent Qualified Code(s): J45.41 - Moderate persistent asthma with (acute) exacerbation
[2019-08-06 14:58] LABS: Adenovirus Not Detected (Not Detect); Bordetella Pertussis Not Detected (Not Detect); Chlamydophila pneumoniae Not Detected (Not Detect); Coronavirus 229E Not Detected (Not Detect); Coronavirus HKU1 Not Detected (Not Detect); Coronavirus NL63 Not Detected (Not Detect); Coronavirus OC43 Not Detected (Not Detect); Human Metapneumovirus Not Detected (Not Detect); Human Rhinovirus/Enterovirus Not Detected (Not Detect); Influenza A Subtype 2009 H1 Not Detected (Not Detect); Influenza A Untypeable Not Detected (Not Detect); Influenza B Not Detected (Not Detect); Mycoplasma pneumoniae Not Detected (Not Detect); Parainfluenza Virus 1 Not Detected (Not Detect); Parainfluenza Virus 2 Not Detected (Not Detect); Parainfluenza Virus 3 Not Detected (Not Detect); Parainfluenza Virus 4 Not Detected (Not Detect); Respiratory Syncytial Virus Not Detected (Not Detect)
[2019-08-07] MEDS: Ipratropium/Albuterol Neb 3 ML IH SCH ×4 (00:22→11:08)
[2019-08-07 04:32] LABS: Basophils % 0.1 %; Hematocrit 38.6 % (35.3-44.9); Hemoglobin 12.5 g/dL (11.5-15.4); Immature Granulocytes % 2.6 % (0-4); Lymphocytes # 2.1 K/mcL (0.6-4.6); Lymphocytes % 11.8 %; Mean Corpuscular HGB Conc 32.4 g/dL (31.6-35.5); Mean Corpuscular Hemoglobin 30.2 pg (28.0-33.3); Mean Corpuscular Volume 93.2 fL (83.0-100.0); Mean Platelet Volume 11.1 fL (9.4-12.4); Monocytes % 5.4 %; Platelet Count 332 K/mcL (140-400); Red Blood Count 4.14 M/mcL (3.82-4.97); Red Cell Distribution Width 13.9 % (11.5-14.5); Segmented Neutrophils % 80.1 %; White Blood Count 17.5 K/mcL (4.3-11.1)
[2019-08-07] MEDS: methylPREDNISolone 125 MG/2 ML VIAL IVP SCH (05:22)
[2019-08-07] MEDS: cefTRIAXone 2,000 MG in Water for inj. (sterile) 20 ML IVP SCH (05:23)
[2019-08-07] MEDS: *HR* Heparin 5,000 UNIT/ML VIAL SQ SCH (05:23)
--- NOTE | 2019-08-07 09:22 | Internal Med Progress Note ---
Hospitalist Progress Note - Encounter Date of Encounter: 08/07/19 Time of Encounter: 08:37 - Subjective Interval History: Was seen and examined at bedside she does appear to be breathing much better today. However I did note some mild conversational dyspnea. Patient states she has been name bleeding in the room without any difficulty we will have patient Lynne Hdez nursing staff performed 6 minute walk for O2 qualification. Patient verbalizes understanding. Discussed with disability case manager concerns for prescriptions and nebulizers due to patient's financial situation currently does not have any insurance. - Exam Vitals: Temp Pulse Resp BP Pulse Ox 98.5 F 79 16 122/77 96 08/07/19 07:24 08/07/19 07:24 08/07/19 07:37 08/07/19 07:24 08/07/19 07:37 Exam: PHYSICAL EXAMINATION: GENERAL APPEARANCE: The patient is alert, oriented and in no acute distress. HEENT: Head is normocephalic. The sinuses are nontender. Pupils are equal and reactive. The nares are patent. Oropharynx clear without lesions. NECK: Supple without lymphadenopathy. HEART: Regular rate and rhythm. LUNGS: Lung sounds are clear ABDOMEN: Soft, nontender, nondistended with good bowel sounds heard. Inguinal area is normal. EXTREMITIES: Without cyanosis, clubbing or edema. NEUROLOGICAL: Gross nonfocal. SKIN: Warm and dry without any rash. - Assessment and Plan (1) Pneumonia Current Visit: Yes Status: Acute Assessment and Plan: Blood culture, sputum culture, and respiratory panel were ordered. Continue empirical IV antibiotics. will order sputum culture 08/06 Blood cultures sputum cultures and respiratory panel are pending at this time Continue with IV antibiotics Continue with breathing treatments 08/07 Respiratory panel was negative Blood cultures are negative to date Continue with current antibiotics Rocephin and azithromycin Continue with breathing treatments (2) DVT prophylaxis Current Visit: Yes Status: Acute Assessment and Plan: Heparin subcutaneous. (3) Morbid obesity with BMI of 40.0-44.9, adult Current Visit: No Status: Chronic Assessment and Plan: Weight control discussed with patient. (4) Tobacco abuse Current Visit: No Status: Acute Assessment and Plan: Smoke cessation discussed with patient. Nicotine patch (5) Asthma exacerbation Current Visit: Yes Status: Acute Assessment and Plan: Patient symptoms are consistent with mild to moderate asthma exacerbation, likely was treated by pneumonia. Blood culture, sputum culture, respiratory panel were ordered. Empirically patient will be started on IV antibiotics with azithromycin and Rocephin. She will also receive bronchodilators and IV steroids. Patient was strongly encouraged to stop smoking. 08/05 He is to have wheezing we will continue with IV steroids will stepped-down to 60 mg every 8 IV. Continue with IV antibiotics as well as bronchodilators Obtain sputum culture Oxygen as needed Respiratory panel pending Nicotine patch encouraged patient to stop smoking Blood culture sputum culture pending We will add Mucinex 08/06 Wheezing is improved today faint scattered wheezes we will continue with 60 mg Solu-Medrol IV every 12 Continue with IV antibiotics as well as bronchodilators Respiratory panel pending Continue with nicotine patch Blood cultures sputum culture pending Continue Mucinex 08/07 No wheezing today patient has been ambulating in her room She does have some mild conversational dyspnea We will perform 6 minute walk test to see patient will qualify for home oxygen Continue with nicotine patch advised patient to stop smoking Continue with bronchodilators and Singulair Continue with Mucinex - Time Spent with Patient Total time spent is greater than 50% in coordination of care (as documented) at patient's floor/unit and/or counseling patient: Internal Medicine: Result - Labs CBC & Chem 7: 08/07/19 03:44 08/06/19 05:08 Labs: Short CBC 08/07/19 Range/Units 03:44 WBC 17.5 H (4.3-11.1) K/mcL Hgb 12.5 (11.5-15.4) g/dL Hct 38.6 (35.3-44.9) % Plt Count 332 (140-400) K/mcL Neutrophils # 14.0 H (1.6-8.9) K/mcL Consult Discharge Plan - Plan Referrals: Jan Gustafson MD [Primary Care Provider] - 08/10/19 9:15 am (Appointment has been requested.) (1) Pneumonia Qualifiers: Pneumonia type: due to unspecified organism Laterality: left Lung location: upper lobe of lung Qualified Code(s): J18.1 - Lobar pneumonia, unspecified organism (5) Asthma exacerbation Qualifiers: Asthma severity: moderate Asthma persistence: persistent Qualified Code(s): J45.41 - Moderate persistent asthma with (acute) exacerbation
[2019-08-07] MEDS: Nicotine 21 MG PATCH.TD24 TD SCH (10:18)
[2019-08-07] MEDS: Azithromycin 500 MG in 0.9 % Sodium Chloride 250 ML IVPB SCH (10:19)
[2019-08-07 11:31] VITALS: BP 142/87
--- NOTE | 2019-08-07 13:10 | Discharge Summary ---
- NOTES TO OUTPATIENT PROVIDER Notes to Outpatient Provider: Asthma excerbation - cont bronchodilators, singulair long steroid taper , Azithromycin Orders not resulted at time of discharge: Pending orders 08/04/19 07:47 Culture,Sputum with Gram Stain [RM] Routine 08/04/19 08:10 Culture,Blood [BC] Routine Date of Encounter: 08/07/19 Time of Encounter: 13:04 - Discharge Diagnosis (1) Pneumonia Priority: Primary Status: Acute Qualifiers: Pneumonia type: due to unspecified organism Laterality: left Lung location: upper lobe of lung Qualified Code(s): J18.1 - Lobar pneumonia, unspecified organism (2) Morbid obesity with BMI of 40.0-44.9, adult Priority: Secondary Status: Chronic (3) Tobacco abuse Priority: Secondary Status: Acute (4) Asthma exacerbation Priority: Primary Status: Acute Qualifiers: Asthma severity: moderate Asthma persistence: persistent Qualified Code(s): J45.41 - Moderate persistent asthma with (acute) exacerbation Hospital course: Ms. Mc is a 43 year old female recently diagnosed with asthma current to pack-a-day smoker presented with complaints of productive cough and shortness of breath for the past few weeks. She was prescribed inhalers but she really uses them. She is also being diagnosed with obstructive sleep apnea however does not use a CPAP Her symptoms progressively worsened and she presented to the ER. Vital signs and labs were unremarkable chest x-ray showed bilateral perihilar peribronchial cuffing typical for bronchitis or reactive airway disease. Focal infiltrates and bilateral perihilar region suspicious for pneumonitis. She received bronchodilators and IV steroids. Over time her respiratory status did improve she has been able to ambulate without any difficulty. 6 minute walk test was completed and patient did not qualify for any oxygen. Patient's transition to oral steroids she will be discharged home on a long steroid taper as well as bronchodilators Singulair and azithromycin. She will follow-up with primary care provider and patient was encouraged to stop smoking patient is hemodynamically stable at this time and is ready for discharge. - Time Spent with Patient Total time spent providing and/or coordinating discharge services: - Discharge Medications Prescriptions: New Azithromycin 250 mg PO DAILY 3 Days #3 tablet Ipratropium/Albuterol Neb [Duoneb] 3 ml IH Q6HR PRN #30 inhsol PRN Reason: Shortness Of Breath/Wheezing predniSONE [PredniSONE] 10 mg PO DAILY #48 tablet Montelukast [Singulair] 5 mg PO DAILY #30 tab.chew Albuterol Sulfate [Proair Respiclick] 90 mcg IH Q6HR PRN #1 aer.pow.ba PRN Reason: Shortness Of Breath/Wheezing Home Medications: Albuterol Sulfate [Proair Respiclick] 90 mcg IH Q6HR PRN #1 aer.pow.ba 08/07/19 [Rx] Azithromycin 250 mg PO DAILY 3 Days #3 tablet 08/07/19 [Rx] Ipratropium/Albuterol Neb [Duoneb] 3 ml IH Q6HR PRN #30 inhsol 08/07/19 [Rx] Montelukast [Singulair] 5 mg PO DAILY #30 tab.chew 08/07/19 [Rx] predniSONE [PredniSONE] 10 mg PO DAILY #48 tablet 08/07/19 [Rx] Allergies/Adverse Reactions: Allergy/AdvReac Type Severity Reaction Status Date / Time No Known Allergies Allergy Verified 08/03/19 22:02 Date of admission: 08/03/19 22:44 Primary care physician: Jan Gustafson MD Consults: 08/04/19 08:54 Consult to Nurse Navigator [CONS] Routine Comment: COPD, PNEUMONIA Discharging clinician: Denice Arita Anticipated date of discharge: 08/07/19 - Constitutional Vitals: Temp Pulse Resp BP Pulse Ox 98.1 F 97 16 142/87 93 08/07/19 11:30 08/07/19 11:30 08/07/19 11:30 08/07/19 11:30 08/07/19 11:30 General appearance: Present: A&O X 3 Exam: Skin: Free of rash and discoloration. Eyes: Sclera is white. There is no discharge from eyes. ENMT: Oral/pharyngeal mucosa is normal in appearance. There is no discharge from nose or ears. Respiratory: Normal breath sounds with no crackles and wheezes bilaterally. CV: Heart is regular with no gallop or murmur. GI: Abdomen is flat and soft with no palpable mass or visceromegaly. : There is no tenderness in patient's flanks bilaterally. Neuro exam: He has good strength in upper and lower extremities. He has normal eye movements. Psychiatric: He has normal affect. His thought process is appropriate to the situation. - Patient Status Disposition: Home, Self-Care Condition: Good Functional capacity at discharge: independent ambulation Overall status at discharge: patient is back to baseline - Discharge Instructions Instructions: Prednisone (By mouth), Azithromycin (By mouth), Ipratropium/Albuterol (By breathing), Montelukast (By mouth), Asthma (DC) Follow Up With: Jan Gustafson MD [Primary Care Provider] - 08/10/19 9:15 am (Appointment has been requested.) - Diet and Activity Activity: increase activity as tolerated Diet: advance to your usual diet
[2019-08-07] MEDS ORDERED: MethylPREDNISolone 40 MG/ML VIAL IVP SCH (18:00)
[2019-08-08] MEDS ORDERED: predniSONE 20 MG TABLET PO SCH (09:00)
--- NOTE | 2019-08-10 11:36 | Electrocardiograph Report ---
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
== END 2019-08-07 14:45 | disposition home or self-care (01) ==
LOC: 3BNU 19:15 → EMEROOARM 19:15 → 3BNU 22:59
PROVIDERS: ADMIT Family Medicine; ATTEND Family Medicine